=== PATIENT | female | born 1950 | race Caucasian/White ===

== ENCOUNTER 2017-05-11 08:23 | Day surgery (SDC) | payer MEDICARE, OTHER ==
[~2017-05-11] VITALS: Ht 167.6 cm; Wt 92.5 kg
[~2017-05-11 08:23] MED LIST: AC325T PO; AC500T PO; ACET-168 PO; ALPR0.254 PO; ASP81CT PO; ASPI-999 PO; ATOR80TA PO; ATOR80TA76 PO; CITA20TA7 PO; CLOP75TA28 PO; CLPD75T PO; CRB100CT PO; DIPH50CA PO; DOCU-143 PO; IMMODIUM; LISI10TA2 PO; LOPE2CAP PO; METO-333 PO; METO25TA2 PO; MONT10TA21 PO; MONT10TA24 PO; NCT21TD TD; NICO1PAT16 TD; NITR0.4T SL; NTR.4SL SL; OMEG-12 PO; PNT40TEC PO; RANI150T11 PO; RANO500T2 PO; RT-ALBUINH IH
[2017-05-11] MEDS ORDERED: HEParin (CATH LAB) 2,000 ML IV ONE (08:34)
[2017-05-11] MEDS ORDERED: NS IV 1000 ML 1,000 ML ONE (08:34)
[2017-05-11 09:00] VITALS: BP 130/77
[2017-05-11 09:05] LABS: RED BLOOD COUNT 5.01 10^6/uL (4.35-5.85); RED CELL DISTRIBUTION WIDTH 15.3 % (10.0-14.5); WHITE BLOOD COUNT 7.7 10^3/uL (4.3-11.0)
[2017-05-11] MEDS ORDERED: NS IV 1000 ML 1,000 ML IV SCH ×2 (09:15→13:32)
[2017-05-11 09:16] LABS: INR 0.9 (0.8-1.4); PROTHROMBIN TIME PATIENT 12.1 SEC (12.2-14.7)
[2017-05-11] MEDS ORDERED: LEVO75TA6 PO (09:25)
[2017-05-11] MEDS ORDERED: LOPE2TAB64 PO (09:25)
[2017-05-11] MEDS ORDERED: ATOR20TA66 PO (09:25)
[2017-05-11] MEDS ORDERED: LORA0.5T PO (09:25)
[2017-05-11 09:26] LABS: BILIRUBIN,TOTAL 0.4 MG/DL (0.1-1.0); CALCIUM 9.7 MG/DL (8.5-10.1); CREATININE SERUM 1.09 MG/DL (0.60-1.30); POTASSIUM 4.4 MMOL/L (3.6-5.0); TOTAL PROTEIN 7.8 GM/DL (6.4-8.2)
[2017-05-11] MEDS ORDERED: CITA40TA11 PO (09:31)
[2017-05-11] MEDS ORDERED: diphenhydrAMINE 50 MG/ML INJ (BENADRYL) ONE (12:19)
[2017-05-11] MEDS ORDERED: MIDAZOLAM 5 MG/5 ML (VERSED) VIAL ONE (12:19)
[2017-05-11] MEDS ORDERED: fentaNYL INJECTION 100 MCG/2 ML AMP ONE (12:19)
--- NOTE | 2017-05-11 13:23 | Cardiac Procedure Note-CS/ASA ---
Pre-Procedure Note Pre-Op Procedure Note H&P Reviewed The H&P was reviewed, patient examined and no changes noted. Date H&P Reviewed: May 11, 2017 Time H&P Reviewed: 12:40 Conscious Sedation Pre-Proced Time Reviewed: 12:40 ASA Class: 3 Airway Mallampati Classification: ([place] appropriate class) I. II. III, IV Lungs Heart ASA score ASA 1: a normal healthy patient ASA 2: a patient with a mild systemic disease (mid diabetes, controlled hypertension, obesity ASA 3: a patient with a severe systemic disease that limits activity (angina , COPD, prior Myocardial infarction) ASA 4: a patient with an incapacitating disease that is a constant threat to life (CHF, renal failure) ASA 5: a moribund patient not expected to survive 24 hrs. (ruptured aneurysm) ASA 6: a declared brain patient whose organs are being harvested. For emergent operations, add the letter E after the classification Grade 2 Sedation Plan: Analgesia, Amnesia, Plan communicated to team members, Discussed options with patient/fam, Discussed risks with patient/fam Note The patient is an appropriate candidate to undergo the planned procedure, sedation, and anesthesia. The patient immediately re-assessed prior to indication. ISA VASQUEZ MD FACP FAC CCDS May 11, 2017 13:23
--- NOTE | 2017-05-11 13:34 | Discharge Inst-Post CATH ---
Discharge Inst-CATH Post Cardiac Cath D/C Inst Follow Up/Plan F/u with Dr Tobias in 2-3 weeks CARDIAC CATH DISCHARGE INSTRUCTIONS *Hold Metformin for 48 hours post heart cath. ACTIVITY * Go Home directly and rest. * Limit activity of the leg (or wrist if it was used) for 7 days including aerobics, swimming, jogging, bicycling, etc. * Restrict stair-climbing for 7 days if possible, if not, climb up with your non -cath leg, then bring together on the same step. * Avoid lifting, pushing, pulling or excessive movement of the affected extremity for 7 days. * Customary sexual activity may be resumed after 2 days-use caution not to use a position that strains or causes pain to the affected extremity. * No driving for 24 hours. * NO SMOKING. * Avoid straining for bowel movements for 7 days. * Gentle walking on level ground is allowed. * Returning to work will depend on the type of procedure and the results. Your doctor will discuss this with you. CALL YOUR DOCTOR FOR ANY OF THE FOLLOWING: *If bleeding from the puncture site occurs- Apply gentle pressure to site with clean cloth and call your doctor or EMS. * If a knot or lump forms under the skin, increases in size, or causes pain. * If bruising appears to be worsening or moving further down your leg instead of disappearing. * Temperature above 101 F. CARE OF YOUR GROIN INCISION; * Bruising or purple discoloration of the skin near the puncture site is common. * You may shower only, no bathtub bathing for 5 days. Be careful to avoid slipping as your leg may feel stiff. * If a closure device was used on your femoral artery, please see the attached guide regarding care of the device and your leg. * REMOVE the dressing from your groin the next day after your procedure in the shower. CARE OF YOUR WRIST INCISION; * Bruising or purple discoloration of the skin near the puncture site is common. * You may shower. * DO NOT submerge wrist. * Remove dressing in 24 hours. ISA TOBIAS MD [facility] CCDS May 11, 2017 13:34
--- NOTE | 2017-05-11 13:35 | Discharge Inst-Cardiology ---
Discharge Inst-Cardiac Discharge Medications Continued Medications: Acetaminophen (Acetaminophen Extra Strength) 500 Mg Tablet 1000 MG PO Q6H PRN for PAIN TAKES 2 (500MG) TABLETS Albuterol Sulfate (Ventolin Hfa) 18 Gm Hfa.aer.ad 2 PUFF IH Q4H PRN for SHORTNESS OF BREATH Aspirin (Aspirin) 81 Mg Tab.chew 81 MG PO 0900 Atorvastatin Calcium (Atorvastatin Calcium) 20 Mg Tablet 20 MG PO 0900, TAB Citalopram Hydrobromide (Citalopram HBr) 40 Mg Tablet 40 MG PO DAILY, TAB Clopidogrel Bisulfate (Clopidogrel) 75 Mg Tablet 75 MG PO 0900 Docusate Sodium (Colace) 100 Mg Capsule 100 MG PO HS PRN for CONSTIPATION Levothyroxine Sodium (Levothyroxine Sodium) 75 Mcg Tablet 75 MCG PO 0800, TAB Loperamide HCl (Anti-Diarrhea) 2 Mg Tablet 2 MG PO PRN PRN for DIARRHEA, TAB Lorazepam (Lorazepam) 0.5 Mg Tablet 0.5-1.5 MG PO HS PRN for INSOMNIA, TAB TAKES 1-3 OF A (0.5 MG) TABLET Nitroglycerin (Nitrostat) 0.4 Mg Tab.subl 0.4 MG SL UD PRN for CHEST PAIN Ranitidine HCl (Ranitidine HCl) 150 Mg Tablet 150 MG PO HS PRN for HEARTBURN ISA VASQUEZ MD FACP [facility] CCDS May 11, 2017 13:35
[2017-05-11] MEDS ORDERED: PATIENT MAY USE OWN MEDS, ALL PO SCH (13:45)
--- NOTE | 2017-05-13 00:37 | CARDIAC CATHETERIZATION ---
DATE OF SERVICE: 05/11/2017 The patient is a 67-year-old lady who is known to have coronary artery disease and has been experiencing recurrent chest discomfort and shortness of breath. This is suggestive of recurrent angina. Cardiac catheterization was carried out today after having obtained an informed consent. DESCRIPTION OF PROCEDURE: She was brought to the cardiac catheterization laboratory in a fasting state. Right groin was prepared and draped in the usual sterile fashion. Lidocaine 1% was used for local anesthesia. Modified Seldinger technique was used to advance a 5-Belizean sheath in the right femoral artery. A 5-Belizean JL3.5 catheter was used for left coronary angiography. A 5-Belizean JR4 catheter was used for right coronary angiography. A 5-Belizean pigtail catheter was used for left heart catheterization and left ventricular angiography. Angiography of the right femoral artery had been carried out through the sheath at the beginning of the procedure. At the end of the procedure, Mynx was used to achieve hemostasis following sheath removal. She tolerated the procedure well. We also performed aortic arch angiography after performance of left ventricular angiography. This was done by pulling the pigtail catheter back from the left ventricle to the aortic arch before removing the catheter. HEMODYNAMICS: Left ventricular end-diastolic pressure following coronary angiography was 7 mmHg. There was no significant pressure gradient on pullback across the aortic valve. Ascending aortic pressure was 96/65 with a mean of 57 mmHg. LEFT VENTRICULAR ANGIOGRAPHY: Left ventricular angiography was carried out in the right anterior oblique projection. Global left ventricular systolic function is normal. No regional wall motion abnormalities are seen. Left ventricular ejection fraction is 60-65%. There does not appear to be significant mitral regurgitation. CORONARY ANGIOGRAPHY: [id number] coronary calcification is seen. Left main coronary artery does not exhibit significant disease. Left anterior descending artery has mild plaques. Left circumflex artery has approximately 30% ostial and proximal stenosis. The mid left circumflex artery has a widely patent stent that is known to be Promus 3.0 x 32 mm stent. The right coronary artery is dominant. It has a long stented area in its mid to distal portion. In this area, she is known to have Promus 3.0 x 16 mm, 3.0 x 12 mm and a 2.25 x 16 mm stents. The stents do not exhibit any significant in-stent restenosis. Flow throughout the vessel is normal. AORTIC ARCH ANGIOGRAPHY: Aortic arch angiography was carried out after the pigtail catheter had been pulled back from the left ventricle into the aortic arch. Aortic arch angiography did not indicate any significant thoracic aortic aneurysm or dissection. The neck arteries are seen and, to the extent visualized, there does not appear to be significant disease in the neck arteries. CONCLUSIONS: 1. Mild coronary artery disease. 2. Patent stents in the left circumflex and the right coronary arteries. 3. Normal left ventricular end-diastolic pressure. 4. Normal global left ventricular systolic function with ejection fraction approximately 60-65%. 5. No significant mitral regurgitation. DISCUSSION AND RECOMMENDATIONS: Based on results of the study, it appears appropriate to continue a conservative approach. Risk factor modification was reviewed. Outpatient followup is advised. Job ID: [id number] DocumentID: [id number] Dictated Date: 05/11/2017 13:31:39 Gasoline Tester Date: 05/12/2017 00:15:06 Dictated By: ISA VASQUEZ MD, MA, FACP, FACC, MTDD
== END 2017-05-11 16:55 | disposition home or self-care (01) ==
LOC: CATH 08:23 → ICU 13:25 → ENPENDDIS 16:40 → CATH 16:55
PROVIDERS: ATTEND Internal Medicine Cardiovascular Disease
CPT/HCPCS: 36221; 36415; 80053; 80061; 85027; 85610; 85730; 87081; 93005; 93458

== ENCOUNTER 2018-06-17 09:51 | Outpatient (RCR) | payer MEDICARE, OTHER ==
[~2018-06-17 09:51] MED LIST changes: +ATOR20TA66 PO; -CITA20TA7 PO; +CITA20TA9 PO; +CITA40TA11 PO; +LEVO75TA6 PO; +LOPE2TAB64 PO; +LORA0.5T PO; -NCT21TD TD; +NICO-533 TD; +NICO-588 TD; -NICO1PAT16 TD
== END 2018-06-30 15:01 | disposition home or self-care (01) ==
PROVIDERS: ATTEND Orthopaedic Surgery
DX: M75.102 Unspecified rotator cuff tear or rupture of left shoulder, not specified as traumatic (principal)

== ENCOUNTER → 2019-01-10 | Outpatient (CLI) | payer MEDICARE, OTHER ==
[~2019-01-10] VITALS: Ht 170.2 cm; Wt 100.7 kg
[~2019-01-10] MED LIST changes: +CATHETER FLUSH 10 ML SYR IV PRN; +REGADENOSON 0.4 MG/5 ML SYR (LEXISCAN) IV ONE
[2019-01-10 08:46] VITALS: BP 132/70
[2019-01-10 08:51] VITALS: BP 122/74
--- NOTE | 2019-01-10 19:19 | STRESS TEST ---
DATE OF SERVICE: 01/10/2019 RESTING AND POST REGADENOSON TECHNETIUM-99M TETROFOSMIN SPECT CT IMAGING ORDERING PHYSICIAN: Dr. Tobias. PRIMARY CARE PHYSICIAN: Dr. Damon. CLINICAL DIAGNOSIS: Chest discomfort. Baseline images were carried out after injection of 10.59 mCi of technetium-99m Tetrofosmin. This was followed by 0.4 mg of regadenoson and 31.2 mCi of technetium-99m Tetrofosmin for stress imaging. The electrocardiogram showed sinus rhythm at baseline. It did not change significantly with the regadenoson infusion. The patient noticed some shortness of breath and leg discomfort following regadenoson infusion, which resolved in a few minutes. Review of images at rest and following stress does not indicate any significant perfusion defects consistent with significant myocardial ischemia or infarction. Gated images show normal global left ventricular systolic function with normal regional wall motion. Left ventricular ejection fraction is calculated to be 63%. Left ventricular end diastolic volume is 61 mL. TID is absent (0.94). CONCLUSIONS: 1. No evidence of any significant myocardial ischemia or infarction on this study. 2. Normal regional wall motion. 3. Normal global left ventricular systolic function with a calculated ejection fraction of 63%. Job ID: [id number] DocumentID: [id number] Dictated Date: 01/10/2019 16:12:23 [employer]gronomy Location Manager Date: 01/10/2019 19:18:13 Dictated By: ISA TOBIAS MD, MA, FACP, FACC,
== END ==
LOC: CARD 06:46
PROVIDERS: ATTEND Internal Medicine Cardiovascular Disease
DX: R07.9 Chest pain, unspecified (principal); I25.10 Atherosclerotic heart disease of native coronary artery without angina pectoris
CPT/HCPCS: 78452; 93017

== ENCOUNTER → 2019-01-17 | Outpatient (CLI) | payer MEDICARE, OTHER ==
[~2019-01-17] MED LIST changes: -CATHETER FLUSH 10 ML SYR IV PRN; -REGADENOSON 0.4 MG/5 ML SYR (LEXISCAN) IV ONE
[2019-01-17 11:45] LABS: ABG BASE EXCESS 0.4 MMOL/L (-2.5-2.5); ABG OXYGEN SATURATION 97 % (94-100); ABG PCO2 39 MMHG (35-45); ABG PH 7.42 (7.37-7.43); ABG PO2 72 MMHG (79-93); ALLENS TEST YES-POS; INSPIRED O2 RA
[2019-01-17 11:46] LABS: PATIENT TEMP 95.6; VENTILATOR NO
== END ==
LOC: LAB 10:56
PROVIDERS: ATTEND Internal Medicine Critical Care Medicine
DX: J43.8 Other emphysema (principal); R06.89 Other abnormalities of breathing; R05 Cough; R06.02 Shortness of breath; G47.33 Obstructive sleep apnea (adult) (pediatric); Z72.0 Tobacco use
CPT/HCPCS: 36600; 82805

== ENCOUNTER 2019-02-14 09:17 | Day surgery (SDC) | payer MEDICARE, OTHER ==
[2019-02-14] VITALS (9 sets, daily range): BP systolic 99–129; BP diastolic 56–72
[~2019-02-14] VITALS: Ht 165.1 cm; Wt 105.7 kg
[2019-02-14] MEDS ORDERED: HEParin (CATH LAB) 2,000 ML IV ONE (09:30)
[2019-02-14] MEDS ORDERED: NS IV 1000 ML 1,000 ML ONE (09:30)
[2019-02-14] MEDS ORDERED: LIDOCAINE 1% INJ 20 ML 20 ML VIAL ONE (09:30)
[2019-02-14 09:50] LABS: HEMOGLOBIN 12.5 G/DL (11.5-16.0); MEAN PLATELET VOLUME 9.7 FL (7.4-10.4); WHITE BLOOD COUNT 8.7 10^3/uL (4.3-11.0)
[2019-02-14 10:02] LABS: INR 0.9 (0.8-1.4); PROTHROMBIN TIME PATIENT 12.7 SEC (12.2-14.7)
[2019-02-14] MEDS ORDERED: FLUT1BLS3 IH (10:06)
[2019-02-14] MEDS ORDERED: LORA1TAB PO (10:06)
[2019-02-14] MEDS ORDERED: GABA800T10 PO (10:06)
[2019-02-14] MEDS ORDERED: CETI10TA17 PO (10:06)
[2019-02-14] MEDS ORDERED: CHOL500044 PO (10:06)
[2019-02-14] MEDS ORDERED: VIT1TABL26 PO (10:06)
[2019-02-14] MEDS ORDERED: ZAFI20TA13 PO (10:06)
[2019-02-14 10:09] LABS: ALBUMIN 3.8 GM/DL (3.2-4.5); BILIRUBIN,TOTAL 0.3 MG/DL (0.1-1.0); CALCIUM 9.8 MG/DL (8.5-10.1); CREATININE SERUM 1.09 MG/DL (0.60-1.30); POTASSIUM 3.9 MMOL/L (3.6-5.0); TOTAL PROTEIN 7.6 GM/DL (6.4-8.2)
[2019-02-14] MEDS ORDERED: MIDAZOLAM 5 MG/5 ML (VERSED) VIAL ONE (10:09)
[2019-02-14] MEDS ORDERED: fentaNYL INJECTION 100 MCG/2 ML AMP ONE (10:09)
[2019-02-14] MEDS ORDERED: MIDAZOLAM 2 MG/2 ML (VERSED) VIAL ONE (10:49)
[2019-02-14] MEDS ORDERED: NS IV 1000 ML 1,000 ML IV SCH ×2 (11:00→11:15)
[2019-02-14] MEDS ORDERED: PATIENT MAY USE OWN MEDS, ALL PO SCH (11:15)
--- NOTE | 2019-02-14 11:15 | Cardiac Procedure Note-CS/ASA ---
Pre-Procedure Note Pre-Op Procedure Note H&P Reviewed The H&P was reviewed, patient examined and no changes noted. Date H&P Reviewed: February 14, 2019 Time H&P Reviewed: 10:40 Conscious Sedation Pre-Proced Time 10:40 ASA Score 3 For ASA 3 and 4: Consider anesthesia and medical clearance. Also, for patients with a history of failed moderate sedation consider anesthesia. Airway Lungs Heart ASA score ASA 1: a normal healthy patient ASA 2: a patient with a mild systemic disease (mid diabetes, controlled hypertension, obesity ASA 3: a patient with a severe systemic disease that limits activity (angina , COPD, prior Myocardial infarction) ASA 4: a patient with an incapacitating disease that is a constant threat to life (CHF, renal failure) ASA 5: a moribund patient not expected to survive 24 hrs. (ruptured aneurysm) ASA 6: a declared brain- patient whose organs are being harvested. For emergent operations, add the letter E after the classification Mallampati Classification Grade 2 Sedation Plan Analgesia, Amnesia, Plan communicated to team members, Discussed options with patient/fam, Discussed risks with patient/fam The patient is an appropriate candidate to undergo the planned procedure, sedation, and anesthesia. The patient immediately re-assessed prior to indication. ISA VASQUEZ MD FACP FAC CCDS February 14, 2019 11:15
--- NOTE | 2019-02-14 11:18 | Discharge Inst-Cardiology ---
Discharge Inst-Cardiac Discharge Medications Continued Medications: Acetaminophen (Acetaminophen Extra Strength) 500 Mg Tablet 1000 MG PO Q6H PRN for PAIN TAKES 2 (500MG) TABLETS Albuterol Sulfate (Ventolin Hfa) 18 Gm Hfa.aer.ad 2 PUFF IH Q4H PRN for SHORTNESS OF BREATH Aspirin (Aspirin) 81 Mg Tab.chew 81 MG PO 0900 Atorvastatin Calcium (Atorvastatin Calcium) 20 Mg Tablet 20 MG PO 0900, TAB Cetirizine HCl (Cetirizine HCl) 10 Mg Tablet 10 MG PO DAILY, TAB Cholecalciferol (Vitamin D3) (Vitamin D3) 5,000 Unit Tablet 5000 UNIT PO DAILY, TAB Citalopram Hydrobromide (Citalopram HBr) 40 Mg Tablet 40 MG PO DAILY, TAB Clopidogrel Bisulfate (Clopidogrel) 75 Mg Tablet 75 MG PO 0900 Fluticasone/Umeclidin/Vilanter (Trelegy Ellipta 100-62.5-25) 1 Each Blst.w.dev 1 EACH IH DAILY Gabapentin (Gabapentin) 800 Mg Tablet 800 MG PO TID, TAB Levothyroxine Sodium (Levothyroxine Sodium) 75 Mcg Tablet 75 MCG PO 0800, TAB Loperamide HCl (Anti-Diarrhea) 2 Mg Tablet 2 MG PO PRN PRN for DIARRHEA, TAB Lorazepam (Lorazepam) 1 Mg Tablet 1 MG PO HS, TAB Nitroglycerin (Nitrostat) 0.4 Mg Tab.subl 0.4 MG SL UD PRN for CHEST PAIN Ranitidine HCl (Ranitidine HCl) 150 Mg Tablet 150 MG PO HS PRN for HEARTBURN Vit A,C & E/Lutein/Minerals (Ocuvite with Lutein Tablet) 1 Each Tablet 1 EACH PO DAILY, TAB Zafirlukast (Zafirlukast) 20 Mg Tablet 20 MG PO BID, TAB ISA VASQUEZ MD FACP FAC CCDS February 14, 2019 11:18
--- NOTE | 2019-02-14 11:19 | Discharge Inst-Post CATH ---
Discharge Inst-CATH/EP Post Cardiac Cath/EP D/C Inst Follow Up/Plan F/u with Dr Tobias in 2 weeks ACTIVITY * Go Home directly and rest. * Limit activity of the leg (or wrist if it was used) for 7 days including aerobics, swimming, jogging, bicycling, etc. * Restrict stair-climbing for 7 days if possible, if not, climb up with your non -cath leg, then bring together on the same step. * Avoid lifting, pushing, pulling or excessive movement of the affected extremity for 7 days. * Customary sexual activity may be resumed after 2 days-use caution not to use a position that strains or causes pain to the affected extremity. * No driving for 24 hours. * NO SMOKING. * Avoid straining for bowel movements for 7 days. * Gentle walking on level ground is allowed. * Returning to work will depend on the type of procedure and the results. Your doctor will discuss this with you. CALL YOUR DOCTOR FOR ANY OF THE FOLLOWING: *If bleeding from the puncture site occurs- Apply gentle pressure to site with clean cloth and call your doctor or EMS. * If a knot or lump forms under the skin, increases in size, or causes pain. * If bruising appears to be worsening or moving further down your leg instead of disappearing. * Temperature above 101 F. CARE OF YOUR GROIN INCISION; * Bruising or purple discoloration of the skin near the puncture site is common. * You may shower only, no bathtub bathing for 5 days. Be careful to avoid slipping as your leg may feel stiff. * If a closure device was used on your femoral artery, please see the attached guide regarding care of the device and your leg. * Leave dressing on FOR 24 hours. CARE OF YOUR WRIST INCISION; * Bruising or purple discoloration of the skin near the puncture site is common. * You may shower. * DO NOT submerge wrist. * Leave dressing on FOR 24 hours. ISA TOBIAS MD FACP FAC CCDS February 14, 2019 11:19
--- NOTE | 2019-02-14 11:28 | OPERATIVE REPORT ---
DATE OF SERVICE: 02/14/2019 PERIPHERAL ANGIOGRAPHY The patient is a 68-year-old lady who is known to have multiple peripheral arterial disease risk factors and who was reporting symptoms that are consistent with leg claudication on both sides. Peripheral angiography was carried out today after having obtained an informed consent. DESCRIPTION OF PROCEDURE: She was brought to the cardiac catheterization laboratory in a fasting state. Right groin was prepared and draped in the usual sterile fashion. Lidocaine 1% used for local anesthesia. Modified Seldinger technique was used to advance a 5-[place]cuadorean sheath in the right femoral artery. A 5-Ecuadorean pigtail catheter was used for abdominal aortic angiography with the pigtail placed at the level of L1. Subsequently, the pigtail was pulled back to just above the aortoiliac bifurcation and bilateral leg artery angiography was performed with runoff down to the level of the ankles. She tolerated the procedure well. At the end of the procedure, Mynx was used to achieve hemostasis. ABDOMINAL AORTIC ANGIOGRAPHY: Abdominal aortic angiography does not indicate any abdominal aortic aneurysm, dissection or any significant atherosclerosis. The renal arteries are identified. There is a dual renal arterial system on the right side. Renal arteries do not exhibit any significant renal artery stenosis. The aortoiliac bifurcation is intact. The inferior mesenteric artery is identified and does not exhibit significant disease. BILATERAL LEG ARTERY ANGIOGRAPHY: The common iliac, external iliac, internal iliac, common femoral, superficial femoral, deep femoral, and popliteal arteries are intact and free of significant disease on both sides. The popliteal artery trifurcates on both sides with good distal runoff. CONCLUSIONS: 1. No evidence of abdominal aortic aneurysm. 2. No evidence of any renal artery stenosis. 3. No evidence of any significant peripheral arterial disease of the lower limbs. DISCUSSION AND RECOMMENDATIONS: Based on results of the study, it appears appropriate to continue a conservative approach. Risk factor modification is advised. Outpatient followup is advised. Job ID: [id number] DocumentID: [id number] Dictated Date: 02/14/2019 11:04:13 [place] In Date: 02/14/2019 11:27:58 Dictated By: ISA VASQUEZ MD, MA, FACP, FACC,
== END 2019-02-14 14:30 | disposition home or self-care (01) ==
LOC: CATH 09:17 → SDC 11:28 → CATH 14:30
PROVIDERS: ATTEND Internal Medicine Cardiovascular Disease
DX: M79.661 Pain in right lower leg (principal); M79.662 Pain in left lower leg; M79.89 Other specified soft tissue disorders; R07.89 Other chest pain; I25.10 Atherosclerotic heart disease of native coronary artery without angina pectoris; J44.9 Chronic obstructive pulmonary disease, unspecified; E78.5 Hyperlipidemia, unspecified; I65.23 Occlusion and stenosis of bilateral carotid arteries; G47.33 Obstructive sleep apnea (adult) (pediatric); E03.9 Hypothyroidism, unspecified; Z91.19 Patient's noncompliance with other medical treatment and regimen; Z79.82 Long term (current) use of aspirin; Z79.899 Other long term (current) drug therapy
CPT/HCPCS: 36415; 75625; 75716; 80053; 80061; 85027; 85610; 85730; 87081

== ENCOUNTER → 2019-04-05 | Outpatient (CLI) | payer MEDICARE, OTHER ==
[~2019-04-05] MED LIST changes: +CETI10TA17 PO; +CHOL500044 PO; +FLUT1BLS3 IH; +GABA800T10 PO; +HOLD METFORMIN - RECEIVED CONTRAST 20 ML VIAL IV SCH; +IOHEXOL 350 MG/ML 100 ML (OMNIPAQUE 350) VIAL IV ONE; +LORA1TAB PO; +NS 100 ML (IVPB) BAG IV ONE; +VIT1TABL26 PO; +ZAFI20TA13 PO
[2019-04-05 10:38] LABS: CREATININE SERUM 1.06 MG/DL (0.60-1.30)
--- NOTE | 2019-04-05 11:12 | Diagnostic Imaging Report ---
PROCEDURE: CT chest with contrast only. TECHNIQUE: Multiple contiguous axial images were obtained through the chest after administration of intravenous contrast. Auto Exposure Controls were utilized during the CT exam to meet ALARA standards for radiation dose reduction. INDICATION: Shortness of breath FINDINGS: There is calcific atherosclerosis of the aorta but no aneurysm or dissection. There are no central pulmonary emboli. Lungs are clear. There are no effusions or pneumothoraces. There is no hilar or mediastinal lymphadenopathy. IMPRESSION: Atherosclerosis. CT chest otherwise unremarkable. Dictated by: Dictated on workstation # [id number]
== END ==
LOC: RAD 09:15
PROVIDERS: ATTEND Nurse Practitioner Family
DX: J44.9 Chronic obstructive pulmonary disease, unspecified (principal); J30.9 Allergic rhinitis, unspecified; G47.33 Obstructive sleep apnea (adult) (pediatric); I70.0 Atherosclerosis of aorta; Z72.0 Tobacco use
CPT/HCPCS: 36415; 71260; 82565; 84520

== ENCOUNTER → 2019-04-05 | Outpatient (CLI) | payer MEDICARE, OTHER ==
[~2019-04-05] MED LIST changes: -HOLD METFORMIN - RECEIVED CONTRAST 20 ML VIAL IV SCH; -IOHEXOL 350 MG/ML 100 ML (OMNIPAQUE 350) VIAL IV ONE; -NS 100 ML (IVPB) BAG IV ONE; +RT-ALBUTEROL SULF 2.5 MG/3 ML PRE-MIX VIAL INH ONE; +RT-ALBUTEROL SULF 2.5 MG/3 ML PRE-MIX VIAL ONE
== END ==
LOC: RT 09:11
PROVIDERS: ATTEND Nurse Practitioner Family
DX: J44.9 Chronic obstructive pulmonary disease, unspecified (principal); G47.33 Obstructive sleep apnea (adult) (pediatric); J30.9 Allergic rhinitis, unspecified; Z72.0 Tobacco use
CPT/HCPCS: 94060; 94726; 94729

== ENCOUNTER 2019-10-03 22:04 | Day surgery (SDC) | payer MEDICARE, OTHER ==
[~2019-10-03] VITALS: Ht 170 cm; Wt 118.6 kg
[~2019-10-03 22:04] MED LIST changes: -RT-ALBUTEROL SULF 2.5 MG/3 ML PRE-MIX VIAL INH ONE; -RT-ALBUTEROL SULF 2.5 MG/3 ML PRE-MIX VIAL ONE
[2019-10-03] MEDS ORDERED: NITROGLYCERIN 0.4 MG SL TABS BTL 25'S SL ONE (22:07)
[2019-10-03] MEDS ORDERED: ASPIRIN 81 MG CHEW (CHILDREN'S ASA) ONE (22:08)
[2019-10-03] MEDS ORDERED: TICAGRELOR 90 MG TABLET (BRILINTA) PO STA (22:18)
[2019-10-03] MEDS ORDERED: HEParin 1000 UNIT/ML (10ML VIAL) FOR BOLUS ONE ×2 (22:18→22:47)
[2019-10-03 22:25] LABS: BASOPHILS % (AUTO) 0 % (0-10); EOSINOPHILS # (AUTO) 0.2 10^3/uL (0.0-0.3); EOSINOPHILS % (AUTO) 2 % (0-10); HEMATOCRIT 43 % (35-52); HEMOGLOBIN 13.7 G/DL (11.5-16.0); LYMPHOCYTES # (AUTO) 5.1 X 10^3 (1.0-4.0); LYMPHOCYTES % (AUTO) 40 % (12-44); MEAN CORPUSCULAR HEMOGLOBIN 28 PG (25-34); MEAN CORPUSCULAR HGB CONC 32 G/DL (32-36); MEAN CORPUSCULAR VOLUME 87 FL (80-99); MEAN PLATELET VOLUME 10.9 FL (7.4-10.4); MONOCYTES # (AUTO) 1.2 X 10^3 (0.0-1.0); MONOCYTES % (AUTO) 10 % (0-12); NEUTROPHILS # (AUTO) 6.3 X 10^3 (1.8-7.8); NEUTROPHILS % (AUTO) 49 % (42-75); PLATELET COUNT 254 10^3/uL (130-400); WHITE BLOOD COUNT 12.9 10^3/uL (4.3-11.0)
[2019-10-03] MEDS ORDERED: fentaNYL INJECTION 100 MCG/2 ML AMP ONE ×2 (22:30→22:47)
[2019-10-03] MEDS ORDERED: ASPIRIN 81 MG CHEW (CHILDREN'S ASA) PO ONE (22:30)
--- NOTE | 2019-10-03 22:30 | ED Chest Pain ---
General Chief Complaint: Chest Pain Stated Complaint: CHEST PAIN,SOB Source: patient, family Exam Limitations: no limitations History of Present Illness Date Seen by Provider: Oct 03, 2019 Time Seen by Provider: 22:11 Initial Comments Here with report of acute onset of central chest pain that radiates to the jaw and down the left arm. Onset one hour ago and is associated with nausea and vomiting. Does have history of previous heart attack and stent and states this feels like that. She did try some Tylenol and that has not helped. Previously on blood thinner but off of that about 6 months ago after she completed the required course of therapy. Timing/Duration: 1 hour, constant Severity/Quality: moderate, severe Location: central Radiation: jaw, arms, shoulders Activities at Onset: none Prior CP/Workup: cardiac cath, echocardiography, heart attack ASA po OPTIONS ADVISOR: No NTG SL OPTIONS ADVISOR: No Associated Symptoms: No abdominal pain; diaphoresis; No fever/chills; nausea/vomiting, shortness of breath, weakness Allergies and Home Medications Allergies Coded Allergies: Penicillins (Unverified Allergy, Mild, 09/04/09) codeine (Unverified Allergy, Mild, 09/04/09) morphine (Unverified Allergy, Mild, 09/04/09) Home Medications Acetaminophen 500 Mg Tablet, 1,000 MG PO Q6H PRN for PAIN, (Reported) TAKES 2 (500MG) TABLETS Albuterol Sulfate 18 Gm Hfa.aer.ad, 2 PUFF IH Q4H PRN for SHORTNESS OF BREATH, (Reported) Aspirin 81 Mg Tab.chew, 81 MG PO 0900, (Reported) Atorvastatin Calcium 20 Mg Tablet, 20 MG PO 0900, (Reported) Cetirizine HCl 10 Mg Tablet, 10 MG PO DAILY, (Reported) Cholecalciferol (Vitamin D3) 5,000 Unit Tablet, 5,000 UNIT PO DAILY, (Reported) Citalopram Hydrobromide 40 Mg Tablet, 40 MG PO DAILY, (Reported) Clopidogrel Bisulfate 75 Mg Tablet, 75 MG PO 0900, (Reported) Fluticasone/Umeclidin/Vilanter 1 Each Blst.w.dev, 1 EACH IH DAILY, (Reported) Gabapentin 800 Mg Tablet, 800 MG PO TID, (Reported) Levothyroxine Sodium 75 Mcg Tablet, 75 MCG PO 0800, (Reported) Loperamide HCl 2 Mg Tablet, 2 MG PO PRN PRN for DIARRHEA, (Reported) Lorazepam 1 Mg Tablet, 1 MG PO HS, (Reported) Nitroglycerin 0.4 Mg Tab.subl, 0.4 MG SL UD PRN for CHEST PAIN, (Reported) Ranitidine HCl 150 Mg Tablet, 150 MG PO HS PRN for HEARTBURN, (Reported) Vit A,C & E/Lutein/Minerals 1 Each Tablet, 1 EACH PO DAILY, (Reported) Zafirlukast 20 Mg Tablet, 20 MG PO BID, (Reported) Patient Home Medication List Home Medication List Reviewed: Yes Review of Systems Review of Systems Constitutional: see HPI EENTM: No Symptoms Reported Respiratory: See HPI; Denies Cough, Denies Wheezing Cardiovascular: Chest Pain; Denies Irregular Heart Rate; Lightheadedness Genitourinary: No Symptoms Reported Musculoskeletal: see HPI Skin: no symptoms reported Psychiatric/Neurological: Headache, Weakness All Other Systems Reviewed Negative Unless Noted: Yes Past Maxbbsi-Sumoal-Ccmjii Hx Past Med/Social Hx: Reviewed Nursing Past Med/Soc Hx Patient Social History Alcohol Use: Occasionally Uses Recreational Drug Use: No Smoking Status: Current Everyday Smoker Type Used: Cigarettes Recent Foreign Travel: No Contact w/Someone Who Travel: No Recent Hopitalizations: No Immunizations Up To Date Tetanus Booster (TDap): Unknown Date of Pneumonia Vaccine: Aug 21, 2015 Date of Influenza Vaccine: Aug 21, 2015 Seasonal Allergies Seasonal Allergies: Yes Past Medical History Surgeries: Yes Abdominal, Appendectomy, Bowel Surgery, Cardiac, Coronary Stent, Gallbladder, Hysterectomy Respiratory: Yes Sleep Apnea, COPD Cardiac: Yes (CARDIAC CATHS-STENTS X 4) Coronary Artery Disease, Heart Attack, Hypertension Neurological: Yes (TRIGEMINAL NEURALGIA, LEFT SIDED FACIAL NUMBNESS) Reproductive Disorders: Yes (X2 MISCARRIAGES) Female Reproductive Disorders: Denies 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 0.0oz. 105.829051sa; 38.8 BMI Method:Stated General Appearance: No Apparent Distress, WD/WN HEENT: PERRL/EOMI, Pharynx Normal Neck: Non Tender, Supple Respiratory: Lungs Clear, Normal Breath Sounds Cardiovascular: Regular Rate, Rhythm, No Murmur Gastrointestinal: Non Tender, Soft Extremity: Normal Range of Motion, Non Tender Neurologic/Psychiatric: Alert, Oriented x3 Skin: Normal Color, Warm/Dry Procedures/Interventions Date of ETT Placement: Oct 03, 2019 Time of ETT Placement: 23:00 Intubation Method: orotracheal Tube Size: 7.5 Medications: Etomidate, Rocuronium Positive End Tide CO2: Yes Breath Sounds after Intubation: bilateral-equal Intubation Complications: no complications Post Intubation Xray: Yes tube at earl and backed up 1 cm to 24 cm at lip Intubated under emergent conditions. See progress section for intubation note. Progress/Results/Core Measures Results/Orders Lab Results Laboratory Tests Test 10/03/19 22:16 Range/Units White Blood Count 12.9 H 4.3-11.0 10^3/uL Red Blood Count 4.99 4.35-5.85 10^6/uL Hemoglobin 13.7 11.5-16.0 G/DL Hematocrit 43 35-52 % Mean Corpuscular Volume 87 80-99 FL Mean Corpuscular Hemoglobin 28 25-34 PG Mean Corpuscular Hemoglobin Concent 32 32-36 G/DL Red Cell Distribution Width 17.0 H 10.0-14.5 % Platelet Count 254 130-400 10^3/uL Mean Platelet Volume 10.9 H 7.4-10.4 FL Neutrophils (%) (Auto) 49 42-75 % Lymphocytes (%) (Auto) 40 12-44 % Monocytes (%) (Auto) 10 0-12 % Eosinophils (%) (Auto) 2 0-10 % Basophils (%) (Auto) 0 0-10 % Neutrophils # (Auto) 6.3 1.8-7.8 X 10^3 Lymphocytes # (Auto) 5.1 H 1.0-4.0 X 10^3 Monocytes # (Auto) 1.2 H 0.0-1.0 X 10^3 Eosinophils # (Auto) 0.2 0.0-0.3 10^3/uL Basophils # (Auto) 0.0 0.0-0.1 10^3/uL Prothrombin Time 12.8 12.2-14.7 SEC INR Comment 0.9 0.8-1.4 Activated Partial Thromboplast Time 27 24-35 SEC Sodium Level 140 135-145 MMOL/L Potassium Level 3.3 L 3.6-5.0 MMOL/L Chloride Level 104 98-107 MMOL/L Carbon Dioxide Level 20 L 21-32 MMOL/L Anion Gap 16 H 5-14 MMOL/L Blood Urea Nitrogen 9 7-18 MG/DL Creatinine 1.09 0.60-1.30 MG/DL Estimat Glomerular Filtration Rate 50 BUN/Creatinine Ratio 8 Glucose Level 112 H 70-105 MG/DL Calcium Level 10.0 8.5-10.1 MG/DL Corrected Calcium 10.1 8.5-10.1 MG/DL Magnesium Level 2.0 1.6-2.4 MG/DL Total Bilirubin 0.3 0.1-1.0 MG/DL Aspartate Amino Transf (AST/SGOT) 18 5-34 U/L Alanine Aminotransferase (ALT/SGPT) 20 0-55 U/L Alkaline Phosphatase 191 H 40-136 U/L Myoglobin 31.0 10.0-92.0 NG/ML Troponin I < 0.028 <0.028 NG/ML Total Protein 7.6 6.4-8.2 GM/DL Albumin 3.9 3.2-4.5 GM/DL My Orders Orders - STEPHANIE SHARMA MD Nitroglycerin 0.4 Mg Btl 25's (Nitrostat (10/03/19 22:07) Aspirin Chewable Tablet (Baby Aspirin Ch (10/03/19 22:08) Cbc With Automated Diff (10/03/19 22:18) Magnesium (10/03/19 22:18) Chest 1 View, Ap/Pa Only (10/03/19 22:18) Ekg Tracing (10/03/19 22:18) Comprehensive Metabolic Panel (10/03/19 22:18) Myoglobin Serum (10/03/19 22:18) Protime With Inr (10/03/19 22:18) Partial Thromboplastin Time (10/03/19 22:18) O2 (10/03/19 22:18) Monitor-Rhythm Ecg Trace Only (10/03/19 22:18) Lipid Panel (10/04/19 06:00) Ed Iv/Invasive Line Start (10/03/19 22:18) Troponin I (10/03/19 22:18) Ticagrelor Tablet (Brilinta Tablet) (10/03/19 22:18) Heparin Injection (Heparin Injection) (10/03/19 22:30) Aspirin Chewable Tablet (Baby Aspirin Ch (10/03/19 22:30) Heparin (Bolus Per Protocol) (Heparin (B (10/03/19 22:18) Fentanyl Injection (Sublimaze Injection (10/03/19 22:31) Medications Given in ED Current Medications Medications Dose Ordered Sig/Any Route Start Time Stop Time Status Last Admin Dose Admin Aspirin 81 mg STK-MED ONCE .ROUTE 10/03/19 22:08 10/03/19 22:13 DC 10/03/19 22:13 324 MG Heparin Sodium (Porcine) 10,000 unit STK-MED ONCE .ROUTE 10/03/19 22:18 10/03/19 22:23 DC 10/03/19 22:22 5,000 UNIT Vital Signs/I&O 10/03/19 10/03/19 22:05 22:05 Pulse 87 Resp 25 B/P (MAP) 145/89 (107) Pulse Ox 100 100 O2 Delivery Room Air Nasal Cannula O2 Flow Rate 4.00 Progress Progress Note : Progress Note Seen and evaluated. IV, labs, EKG and chest x-ray ordered. ASA 324 mg by mouth ordered. 2216: I discussed the case with Dr. Minor. We will activate Health Advisor team and initiate Brilinta 180 mg, heparin 5000 units and she will get the aspirin. Pending transfer to catheter lab for acute CT inferior wall. 2251: Patient went into ventricular fibrillation cardiac arrest. CPR was initiated. Evaluation showed ventricular fibrillation and patient was defibrillated and CPR was continued. Epinephrine 1 mg IV was initiated. At 2 minute kajal, interpreted fibrillation still noted. Patient was shocked again and CPR continued. Shortly afterwards patient was waking up and patient noted to be in bradycardic rhythm. Atropine 0.5 mg IV initiated and patient at the same time went into ventricular tachycardia. Lidocaine 100 mg IV given. Cardiology arrives and patient then went into narrow complex tachycardia. Patient was intubated due to unstable condition. Versed 2.5 mg IV given. Sedation and paralysis with 20 mg of etomidate and 50 mg of rocuronium IV. Postintubation sedation with another 2.5 mg of Versed and 75 g of fentanyl. Postintubation chest x-ray done. To Health Advisor at 2308 with it risk advisor at bedside. Initial ECG Impression Date: Oct 03, 2019 Initial ECG Impression Time: 22:11 Initial ECG Rate: 90 Initial ECG Rhythm: Normal Sinus Initial ECG Impression: Acute CT Comment Sinus rhythm with ST elevation in leads 2, 3 and aVF speech pathology assistant with inferior wall acute CT. ST depression noted in leads aVL as well as V1 through V3. Discussed with radiologist. Departure Communication (Admissions) Time/Spoke to Admitting Phy: 22:16 Impression Primary Impression: Acute ST elevation myocardial infarction Qualified Codes: I21.3 - ST elevation (STEMI) myocardial infarction of unspecified site Additional Impression: Sudden cardiac arrest Disposition: ADMITTED INPATIENT Condition: Critical Admissions Decision to Admit Reason: Admit from ER (General) Decision to Admit/Date: Oct 03, 2019 Time/Decision to Admit Time: 22:16 Departure-Patient Inst. Referrals: RALF PAYNE DO (PCP/Family) Primary Care Physician STEPHANIE SHARMA MD Oct 03, 2019 22:30
[2019-10-03] MEDS ORDERED: fentaNYL INJECTION 100 MCG/2 ML AMP IVP STA (22:31)
[2019-10-03] MEDS ORDERED: ROCURONIUM 10 MG/ML 5 ML SYRINGE IV ONE (22:33)
[2019-10-03] MEDS ORDERED: ETOMIDATE IV SOLN 20 MG/10 ML VIAL IV ONE (22:33)
[2019-10-03] MEDS ORDERED: fentaNYL INJECTION 100 MCG/2 ML AMP INJ ONE (22:33)
[2019-10-03] MEDS ORDERED: LIDOCAINE DRIP PRE-MIX 2 GM/500 ML BAG IV ONE (22:33)
[2019-10-03] MEDS ORDERED: D5W 250 ML (EXCEL) BAG IV ONE ×2 (22:33)
[2019-10-03] MEDS ORDERED: ATROPINE INJECTION 1 MG/10 ML SYR (ABBOTT) INJ ONE (22:33)
[2019-10-03] MEDS ORDERED: LIDOCAINE BOLUS 100 MG/5 ML (IMS) SYR INJ ONE (22:33)
[2019-10-03] MEDS ORDERED: MIDAZOLAM 5 MG/5 ML (VERSED) VIAL IJ ONE (22:33)
[2019-10-03] MEDS ORDERED: AMIODARONE 450 MG/9 ML (CORDARONE) VIAL IV ONE ×2 (22:33)
[2019-10-03] MEDS ORDERED: EPINEPHrine 0.1 MG/ML 10 ML (HOSPIRA) SYR IJ ONE ×2 (22:33)
[2019-10-03 22:45] LABS: INR 0.9 (0.8-1.4); PROTHROMBIN TIME PATIENT 12.8 SEC (12.2-14.7)
[2019-10-03 22:46] LABS: ALBUMIN 3.9 GM/DL (3.2-4.5); BILIRUBIN,TOTAL 0.3 MG/DL (0.1-1.0); CREATININE SERUM 1.09 MG/DL (0.60-1.30); POTASSIUM 3.3 MMOL/L (3.6-5.0); TOTAL PROTEIN 7.6 GM/DL (6.4-8.2)
[2019-10-03] MEDS ORDERED: MIDAZOLAM 5 MG/5 ML (VERSED) VIAL ONE (22:47)
[2019-10-03] MEDS ORDERED: LIDOCAINE 1% INJ 20 ML 20 ML VIAL ONE (22:47)
[2019-10-03] MEDS ORDERED: NS IV 1000 ML 3,000 ML ONE (22:47)
[2019-10-03] MEDS ORDERED: NITRO DRIP 25000 MCG/D5W 250 ML IV ONE (22:48)
--- NOTE | 2019-10-03 22:51 | NUR ---
2251- PT SUDDENLY BECAME UNRESPONSIVE. NO PULSES PRESENT. V FIB VISUALIZED ON THE MONITOR. CPR INITIATED BY THIS NURSE CODE IS CALLED. 2251-PT IN V FIB, SHOCKED PT. 2252- 1MG EPI GIVEN IV 2253- 2ND SHOCK GIVEN 2254- PULSES RETURN, LIZ ON MONITOR- 0.5 ATROPINE GIVEN IV 2254- V TAC ON MONITOR, DISTAL PULSES WEAK. 2255- 100MG LIDOCAINE GIVEN IV 2256- DR KRAUSE AT BEDSIDE. 2256- 2.5MG VERSED GIVEN 2258-20MG ETOMIDATE GIVEN 2259- 50MG ROCURONIUM GIVEN IV 2300-75MCG GIVEN IV 2300- PT SUCCESSFULLY INTUBATED, 25CM AT THE THEETH, POSITIVE COLOR CHANGE ON BVM, BILAT BREATH SOUNDS PRESENT 2300- Addendum: 10/04/19 at 0143 by [id number] 2251- PT SUDDENLY BECAME UNRESPONSIVE. NO PULSES PRESENT. V FIB VISUALIZED ON THE MONITOR. CPR INITIATED BY THIS NURSE CODE IS CALLED. 2251-PT IN V FIB, SHOCKED PT. 2252- 1MG EPI GIVEN IV 2253- 2ND SHOCK GIVEN 2254- PULSES RETURN, LIZ ON MONITOR- 0.5 ATROPINE GIVEN IV 2254- V TAC ON MONITOR, DISTAL PULSES WEAK. 2255- 100MG LIDOCAINE GIVEN IV, DISTAL PULSES PRESENT Stephenie- DR KRAUSE AT BEDSIDE. 2256- 2.5MG VERSED GIVEN 2258-20MG ETOMIDATE GIVEN 2259- 50MG ROCURONIUM GIVEN IV 2300-75MCG GIVEN IV 2300- PT SUCCESSFULLY INTUBATED, 25CM AT THE THEETH, POSITIVE COLOR CHANGE ON BVM, BILAT BREATH SOUNDS PRESENT 2300- BLOOD PRESSURE OBTAINED. 172/126 2301- 2.5MG OF VERSED 2305- CHEST XRAY OBTAINED TO CONFIRM PLACEMENT OF ET TUBE 2305- PT TO DECORATIVE CUTTING MACHINE TENDER WITH STAFF.
[2019-10-03] MEDS ORDERED: proPOfol 200 MG/20 ML (DIPRIVAN) VIAL IV ONE (23:14)
[2019-10-03] MEDS ORDERED: PROPOFOL DRIP (ICU) 100 ML IV ONE (23:15)
[2019-10-03] MEDS ORDERED: NS (IVPB) 250 ML ONE ×2 (23:15→23:29)
[2019-10-03] MEDS ORDERED: NOREPINEPHRINE 4 MG/4 ML (LEVOPHED) AMP IV ONE (23:15)
[2019-10-03] MEDS ORDERED: ATROPINE INJECTION 1 MG/10 ML SYR (ABBOTT) ONE (23:18)
[2019-10-03] MEDS ORDERED: NS IV 1000 ML 1,000 ML ONE ×3 (23:24→23:59)
[2019-10-03] MEDS ORDERED: niCARdipine 25 MG/10 ML (CARDENE) AMP IV ONE (23:29)
[2019-10-03] MEDS ORDERED: EPTIFIBATIDE BOLUS 20 ML IV ONE (23:39)
[2019-10-03] MEDS ORDERED: AMIODARONE (OMNICELL DRIP KIT) 150 MG/3 ML IV ONE (23:39)
[2019-10-03] MEDS ORDERED: DOPamine DRIP 250 ML IV ONE (23:52)
[2019-10-04] VITALS (34 sets, daily range): BP systolic 62–164; BP diastolic 39–115
[2019-10-04] MEDS ORDERED: HEParin DRIP 25000 UNIT/500ML 500 ML IV ONE (00:20)
[2019-10-04] MEDS ORDERED: LIDOCAINE 1% INJ 20 ML 20 ML VIAL ONE (00:23)
[2019-10-04] MEDS ORDERED: NOREPINEPHRINE 4 MG/4 ML (LEVOPHED) AMP IV ONE ×6 (00:34→06:59)
[2019-10-04] MEDS ORDERED: NS (IVPB) 250 ML ONE ×5 (00:34→06:58)
--- NOTE | 2019-10-04 01:08 | History & Physicial-Cardiolgy ---
HPI-Cardiology Cardiology Consultation: Date of Consultation 10/03/19 Date of Admission 10/03/2019 Attending Physician Adalid Minor MD Admitting Physician Debra Damon DO Consulting Physician Ronny MINOR MD HPI: Time Seen by a Provider: 10:55 Chief Complaint: Chest pain This is a 69-year-old lady who is a patient of Dr. Tobias as an outpatient. She has previous history of an IN and multiple PCI in 2011. She has history of COPD, active smoking, hyperlipidemia, hypertension. She has family history of premature CAD. She's been having shortness of breath in the last few weeks. She is also had episodes of chest pain requiring nitroglycerin. However she started to have acute chest pain on 10/03/2019 at around 9 p.m. Severe substernal, 07/13, not radiating. Associated with shortness of breath. She presented to the ER and was diagnosed as acute inferior posterior STEMI. The catheter lab was called emergently. She had numerous V. fib arrests requiring defibrillation in the ER. Cardiogenic shock requiring pressors. She was intubated/ventilated. Emergent consent was taken from the patient before she was intubated. Review of Systems-Cardiology Review of Systems Constitutional: As described under HPI; No As described under HPI, No no symptoms reported, No chills, No fever, No lightheadedness Eyes: No As described under HPI, No no symptoms reported, No blindness, No blurred vision, No contact lenses, No drainage, No decreased acuity, No foreign body sensation, No pain, No vision change Ears/Nose/Throat: No As described under HPI, No no symptoms reported, No chronic hearing loss, No ear discharge, No ear pain, No nasal drainage, No ulcerations Respiratory: No no symptoms reported; As described under HPI; No As described under HPI, No cough, No orthopnea; shortness of breath; No SOB with excertion Cardiovascular: No no symptoms reported; As described under HPI; No As described under HPI; chest pain; No edema, No irregular heart rate, No lighthea dedness, No palpitations Gastrointestinal: No no symptoms reported, No As described under HPI, No abdomen distended, No abdominal pain, No blood streaked bowels, No constipation, No diarrhea, No nausea, No vomiting, No stool coloration changes Genitourinary: No As described under HPI, No burning, No dysuria, No discharge, No frequency, No flank pain, No hematuria, No urgency : Yes : No Skin: No rash, No skin related problems, No ulcerations Psychiatric/Neurological: No anxiety, No depression, No seizure, No focal weakness, No syncope Hematologic: No bleeding abnormalities All Other Systems Reviewed Negative Unless Noted: Yes GEL-Gmkswb-Fqjsld Hx Patient Social History Alcohol Use: Occasionally Uses Recreational Drug Use: No Smoking Status: Current Everyday Smoker Type Used: Cigarettes Recent Foreign Travel: No Recent Infectious Disease Expo: No Hospitalization with Isolation: Denies Immunizations Up To Date Tetanus Booster (TDap): Unknown Date of Pneumonia Vaccine: Aug 21, 2015 Date of Influenza Vaccine: Aug 21, 2015 Past Medical History PMH As described under Assessment. Allergies and Home Medications Allergies Coded Allergies: Penicillins (Unverified Allergy, Mild, 09/04/09) codeine (Unverified Allergy, Mild, 09/04/09) morphine (Unverified Allergy, Mild, 09/04/09) Home Medications Acetaminophen 500 Mg Tablet, 1,000 MG PO Q6H PRN for PAIN, (Reported) TAKES 2 (500MG) TABLETS Albuterol Sulfate 18 Gm Hfa.aer.ad, 2 PUFF IH Q4H PRN for SHORTNESS OF BREATH, (Reported) Aspirin 81 Mg Tab.chew, 81 MG PO 0900, (Reported) Atorvastatin Calcium 20 Mg Tablet, 20 MG PO 0900, (Reported) Cetirizine HCl 10 Mg Tablet, 10 MG PO DAILY, (Reported) Cholecalciferol (Vitamin D3) 5,000 Unit Tablet, 5,000 UNIT PO DAILY, (Reported) Citalopram Hydrobromide 40 Mg Tablet, 40 MG PO DAILY, (Reported) Clopidogrel Bisulfate 75 Mg Tablet, 75 MG PO 0900, (Reported) Fluticasone/Umeclidin/Vilanter 1 Each Blst.w.dev, 1 EACH IH DAILY, (Reported) Gabapentin 800 Mg Tablet, 800 MG PO TID, (Reported) Levothyroxine Sodium 75 Mcg Tablet, 75 MCG PO 0800, (Reported) Loperamide HCl 2 Mg Tablet, 2 MG PO PRN PRN for DIARRHEA, (Reported) Lorazepam 1 Mg Tablet, 1 MG PO HS, (Reported) Nitroglycerin 0.4 Mg Tab.subl, 0.4 MG SL UD PRN for CHEST PAIN, (Reported) Ranitidine HCl 150 Mg Tablet, 150 MG PO HS PRN for HEARTBURN, (Reported) Vit A,C & E/Lutein/Minerals 1 Each Tablet, 1 EACH PO DAILY, (Reported) Zafirlukast 20 Mg Tablet, 20 MG PO BID, (Reported) Patient Home Medication List Home Medication List Reviewed: Yes Physical Exam-Cardiology Physical Exam Vital Signs/I&O 10/03/19 10/03/19 22:05 22:05 Pulse 87 Resp 25 B/P (MAP) 145/89 (107) Pulse Ox 100 100 O2 Delivery Room Air Nasal Cannula O2 Flow Rate 4.00 Capillary Refill : Less Than 3 Seconds Constitutional: apparent distress HEENT: PERRL; No discharge; hearing is well preserved, oral hygience is good; No ulceration, No xanthelasmas are seen Neck: No carotid bruit; carotid pulses are 2 + bilaterally Respiratory: accessory muscle use, respiratory distress, chest is bilaterally symmetric, other (decreased air entry bilaterally.) Cardiovascular: regular rate-rhythm, tachycardia, S1 and S2 Gastrointestinal: soft, audible bowel sounds; No spleenomegaly Rectal: deferred Extremities: No clubbing, No cyanosis; no lower extremity edema bilateral; No significant edema Neurologic/Psychiatric: other (she was in the process of being intubated/ventilated) Skin: cool; No rash, No ulcerations Data Review Labs Laboratory Tests 10/03/19 22:16: White Blood Count 12.9H, Red Blood Count 4.99, Hemoglobin 13.7, Hematocrit 43, Mean Corpuscular Volume 87, Mean Corpuscular Hemoglobin 28, Mean Corpuscular Hemoglobin Concent 32, Red Cell Distribution Width 17.0H, Platelet Count 254, M gisell Platelet Volume 10.9H, Neutrophils (%) (Auto) 49, Lymphocytes (%) (Auto) 40, Monocytes (%) (Auto) 10, Eosinophils (%) (Auto) 2, Basophils (%) (Auto) 0, Neutrophils # (Auto) 6.3, Lymphocytes # (Auto) 5.1H, Monocytes # (Auto) 1.2H, Eosinophils # (Auto) 0.2, Basophils # (Auto) 0.0, Prothrombin Time 12.8, INR Comment 0.9, Activated Partial Thromboplast Time 27, Sodium Level 140, Potassium Level 3.3L, Chloride Level 104, Carbon Dioxide Level 20L, Anion Gap 16H, Blood Urea Nitrogen 9, Creatinine 1.09, Estimat Glomerular Filtration Rate 50, BUN/Creatinine Ratio 8, Glucose Level 112H, Calcium Level 10.0, Corrected Calcium 10.1, Magnesium Level 2.0, Total Bilirubin 0.3, Aspartate Amino Transf (AST/SGOT) 18, Alanine Aminotransferase (ALT/SGPT) 20, Alkaline Phosphatase 191H , Myoglobin 31.0, Troponin I < 0.028, Total Protein 7.6, Albumin 3.9 ECG Impression ECG Initial ECG Rhythm: V.Fib Initial ECG Impression: Acute IN A/P-Cardiology Assessment/Admission Diagnosis Acute inferior posterior STEMI, Cardiogenic shock requiring pressors, Numerous ventricular fibrillation arrests requiring defibrillation, Active smoking, neck sign COPD, Hypertension, Hyperlipidemia Admission Status: Inpatient Order (span 2 midnights) Reason for Inpatient Admission: Acute STEMI, cardiogenic shock, ventricular fibrillation arrest Plan Acute inferior posterior STEMI, emergent coronary angiography, aspirin, Brilinta, 5000 units of IV heparin given Cardiogenic shock requiring pressors, Numerous ventricular fibrillation arrests requiring defibrillation, IV lidocaine given in the ER. Active smoking, COPD, Hypertension, Hyperlipidemia Critically ill patient Clinical Quality Measures AMI/AHF: ASA po Prior to arrival: Ronny Galeas MD Oct 04, 2019 01:08
--- NOTE | 2019-10-04 01:14 | Coronary Angiography & PCI ---
Coronary Angiography & PCI DATE OF PROCEDURE: 10/04/19 INDICATION: Acute inferior posterior STEMI, cardiogenic shock, multiple episodes of ventricular fibrillation requiring defibrillation. PREOPERATIVE DIAGNOSIS: Acute inferior posterior STEMI, cardiogenic shock, multiple episodes of ventricular fibrillation requiring defibrillation. POSTOPERATIVE DIAGNOSIS: Acute in-stent occlusion in the RCA and left circumflex artery requiring primary PCI. Primary PCI done during active CPR and numerous defibrillation episodes. HISTORY: This is a 69-year-old lady with previous history of RI and PCI to the RCA and left circumflex artery in 2011. She has history of active smoking and COPD. According to the family she is been having worsening shortness of breath in the last 2-3 weeks and has used nitroglycerin tablets increasingly in the last few weeks. However she presented with severe chest pain late evening. EKG showed injury pattern in the inferior posterior leads. Diagnosis acute inferior posterior STEMI. Patient had numerous episodes of ventricular fibrillation in the ER requiring defibrillation. She was intubated/ventilated. Hypotensive requiring pressors. Emergent coronary angiography. PROCEDURES PERFORMED: 1.Coronary angiography. 2.Left heart catheterization. 3.aortic arch angiogram: Medical necessity: For intra-aortic balloon placement. 4. Primary PCI to the mid RCA. 5. Primary PCI to the mid left circumflex artery. 6. Intra-aortic balloon pump placement. COMPLICATIONS: None. SPECIMENS: None. ESTIMATED BLOOD LOSS: 10 mL ANESTHESIA: Conscious sedation ANTICOAGULATION: IV heparin CONTRAST: 200 mL. FLUOROSCOPY: 18.5 minutes. FLOUROSCOPY DOSE: 2139 mgy. PROCEDURE DETAILS: The patient is a 69 female and was brought to the tender labor emergently for inferior posterior STEMI with numerous episodes of ventricular fibrillation requiring defibrillation in the ER, cardiogenic shock on pressors. When the patient arrived to the catheter lab she had no systolic pressure. Ac cess done in the right femoral artery with the 6 Sami sheath. Very low to zero systolic blood pressure. Active CPR was done off-and-on during the procedure. PCI to the RCA was done during active CPR . Especially at the beginning. Also there were numerous episodes of ventricular fibrillation during the procedure requiring numerous shocks. JR4 guide catheter, whisper extra-sup port guidewire and 2.0 x 15 mm balloon. Left heart catheterization and aortic arch angiogram done with a pigtail catheter. Left coronary engaged with a JL4 catheter. See details below. FINDINGS: 1.Left main: Patent. 2.LAD: Patent. 3.Left circumflex artery: Acutely occluded stent in the mid left circumflex artery with faint distal filling. 4.RCA: Subtotal occlusion of mid RCA stent with slow flow. 5.Left heart catheterization: LV pressure 112/12 mmHg. LVEDP 13 mmHg. Aortic pressure 108/76 mmHg. LVEF preserved at 50 percent with no significant wall motion abnormality on high-dose vasopressors. No gradient across the aortic valve. 6. Aortic arch angiogram, medical necessity: For intra-aortic balloon placement. No evidence of aortic aneurysm or dissection. RECOMMENDATIONS: 1. PCI to the RCA is recommended. 2. PCI to the left circumflex artery is recommended. 3. Intra-aortic balloon placement is recommended. INTERVENTION DETAILS: During the initial part of the intervention, we were doing active CPR. Systolic blood pressure was 0 with PEA. We went in with a JR4 guide catheter, whisper extra-support guidewire and a 2.0 x 15 mm balloon. When the guide catheter was placed in the aorta there was no flow back into the guide catheter. I aspirated as much as possible. We then placed a guide catheter in the ostium of the RCA. Again this was during active CPR. Small amount of air was injected into the RCA. The air quickly dispersed into the smaller vessels. I took the balloon and the wire and advanced it into the RCA and was able to break up the air bubbles and quickly get rid of it. We also quickly did a balloon angioplasty in the mid/distal part of the RCA stent which was subtotally occluded. This was at 11.21 p.m. Door to balloon time of 70 minutes. There was a delay in bringing the patient to the catheter lab due to numerous episodes of ventricular fibrillation in the ER requiring defibrillation as well as the need for intubating/ventilating the patient. Aspirin, Brilinta bolus were already given in the ER on arrival. 5000 international units of heparin was given in the ER as well. ACT during the procedure was over 200 seconds. The tip of the wire was placed in the PL branch. We had initially used an emerge 2.0 x 15 mm balloon for initial balloon dilatation. We then took an NC Quantum 3.0 x 20 mm balloon and did balloon angioplasty from the distal RCA till the proximal RCA with reestablishment of flow. Nonflow limiting dissection was noted just proximal to the previous stent. We placed a Xience Candace 3 x 23 mm stent at 16 laly for 30 seconds. Postdilatation was done with the same stent balloon in the overlap region. LEÓN-3 flow and no residual stenosis was noted. The wire and balloon were taken out and post-angiogram showed good flow distally. We then went in with a JL4 guide catheter and a new whisper wire. We quickly crossed the occluded segment in the proximal part of a previously placed stent. I used an emerge 2.0 x 15 mm balloon to cross the lesion. Just by this maneuver withou t deploying the balloon we were able to establish some flow into the distal vessel. We then did a balloon angioplasty and noted a significant lesion. Numerous balloon angiograms were done at 10 laly. We then took an NC Quantum 3.0 x 20 mm and performed high pressure balloon angioplasty in the proximal segment of the stent. Good results were noted. We then took a science Candace 3 x 18 mm drug-eluting stent and deployed it in the proximal segment of the stent at 16 laly for 29 seconds.. The overlap zone was postdilated with the same stent balloon. Excellent results with LEÓN 3 flow and no residual stenosis. The wire and balloon were taken out. No complications noted. We then performed an aortic arch angiogram. There was no aortic dissection. An intra-aortic balloon pump was placed. During the procedure patient continued to have numerous episodes of ventricular fibrillation treated with defibrillation even when there was LEÓN-3 flow restored. Amiodarone bolus was given during the procedure. Amiodarone drip was started. Heparin infusion was started. We also gave double bolus of Integrilin. However the patient started to bleed from the nostrils and the mouth, therefore Integrilin infusion was not started. We also started dopamine infusion and increase the dose of non-epinephrine. At the end of the procedure augmented blood pressure was 140 mmHg. However on augmented blood pressure was below 100 mmHg. Significant improvement in ST elevation was noted. At the end of the procedure there was almost no ST elevation noted at least on the telemetry screens. CONCLUSIONS: 1. Acute inferior posterior STEMI with occluded proximal left circumflex artery stent and subtotal occlusion of the mid/distal RCA stent. Revascularization done with primary PCI of both vessels with balloon angioplasty and one each drug-eluting stent. LEÓN-3 flow restored at the end of the procedure. Long-t erm dual antiplatelet therapy. 2. Cardiogenic shock on high-dose pressors. Intra-aortic balloon pump placed at the end. IV heparin. 3. Numerous episodes of cardiac arrest, PEA, V. fib arrest requiring defibrillation. Initial part of the intervention was done during active CPR. IV amiodarone started during the procedure. 4. Critically ill patient with poor prognosis. I discussed at length with the patient and family and explained the above. They shared with me her wishes that if resuscitative efforts are futile then we should stop. I discussed this with the nursing staff and Dr. Sepulveda as well. Adalid Minor MD, FACP, FACC, [facility] Interventional Cardiology Ronny MINOR MD Oct 04, 2019 01:14
[2019-10-04] MEDS ORDERED: PATIENT MAY USE OWN MEDS, ALL PO SCH (01:15)
[2019-10-04] MEDS: NOREPINEPHRINE 8 MG in NS (IVPB) 250 ML IV SCH ×11 (01:30→22:05)
[2019-10-04] MEDS: AMIODARONE 450 MG/250 ML D5W EXCEL IV SCH ×6 (01:30→23:04)
[2019-10-04] MEDS: DOPamine DRIP 400 MG/250 ML D5W (PRE-MIX) IV SCH (01:30)
[2019-10-04] MEDS ORDERED: MAGNESIUM 1 GM/100 ML IVPB 200 ML IV ONE ×3 (01:43→03:33)
[2019-10-04] MEDS: LIDOCAINE DRIP 500 ML IV SCH ×2 (01:52→18:00)
[2019-10-04] MEDS: MAGNESIUM 1 GM/D5W 100 ML IVPB IV SCH (01:56)
[2019-10-04 02:01] LABS: ABG BASE EXCESS -7.8 MMOL/L (-2.5-2.5); ABG OXYGEN SATURATION 88 % (94-100); ABG PCO2 66 MMHG (35-45); ABG PO2 67 MMHG (79-93); ABG TCO2 22.7 MMOL/L (21.0-31.0)
[2019-10-04 02:03] LABS: ABG PH 7.11 (7.37-7.43); ALLENS TEST YES-POS; INSPIRED O2 100%; VENTILATOR YES
[2019-10-04 02:04] LABS: PATIENT TEMP 35.9
[2019-10-04] MEDS ORDERED: AMIODARONE (OMNICELL DRIP KIT) 150 MG/3 ML IV ONE (02:08)
[2019-10-04] MEDS ORDERED: D5W 100 ML IVPB 0 ML IV ONE (02:09)
[2019-10-04] MEDS ORDERED: POTASSIUM CL 10MEQ/50ML IVPB 200 ML IV ONE (02:10)
[2019-10-04] MEDS ORDERED: MIDAZOLAM FOR DRIPS 10 MG/2 ML VIAL ONE (02:16)
[2019-10-04] MEDS ORDERED: MIDAZOLAM 5 MG/5 ML (VERSED) VIAL ONE (02:16)
[2019-10-04] MEDS ORDERED: NS (IVPB) 100 ML ONE ×2 (02:17→17:43)
[2019-10-04] MEDS: POTASSIUM CL 10 MEQ/50 ML IVPB (PRE-MIX) IV SCH ×4 (02:18→05:18)
[2019-10-04] MEDS ORDERED: MIDAZOLAM 5 MG/5 ML (VERSED) VIAL IVP ONE (02:23)
[2019-10-04] MEDS: MIDAZOLAM INJECTION FOR DRIPS 50 MG in NS (IVPB) 90 ML IV SCH (02:30)
[2019-10-04] MEDS ORDERED: PHENYLEPHRINE INJ 10 MG/ML (FOR DRIP KITS ONLY) ONE ×3 (03:56→06:47)
[2019-10-04] MEDS ORDERED: meTOprolol 5 MG/5 ML (LOPRESSOR) VIAL ONE (03:57)
[2019-10-04] MEDS ORDERED: D5W IV SOLUTION (EXCEL) 250 ML IV ONE ×2 (03:57→05:06)
[2019-10-04 03:58] LABS: BASOPHILS % (AUTO) 0 % (0-10); EOSINOPHILS % (AUTO) 0 % (0-10); HEMATOCRIT 38 % (35-52); HEMOGLOBIN 11.9 G/DL (11.5-16.0); LYMPHOCYTES # (AUTO) 2.8 X 10^3 (1.0-4.0); LYMPHOCYTES % (AUTO) 11 % (12-44); MEAN CORPUSCULAR HEMOGLOBIN 28 PG (25-34); MEAN CORPUSCULAR HGB CONC 31 G/DL (32-36); MEAN CORPUSCULAR VOLUME 88 FL (80-99); MONOCYTES # (AUTO) 1.9 X 10^3 (0.0-1.0); MONOCYTES % (AUTO) 7 % (0-12); NEUTROPHILS # (AUTO) 20.2 X 10^3 (1.8-7.8); NEUTROPHILS % (AUTO) 81 % (42-75); PLATELET COUNT 304 10^3/uL (130-400); RED CELL DISTRIBUTION WIDTH 16.9 % (10.0-14.5); WHITE BLOOD COUNT 24.9 10^3/uL (4.3-11.0)
--- NOTE | 2019-10-04 04:00 | NUR ---
CRITICAL PH AND BICARB ON ABG-1 AMP BICARB GIVEN PER DR SHARMA
[2019-10-04 04:01] LABS: ABG BASE EXCESS -14.1 MMOL/L (-2.5-2.5); ABG OXYGEN SATURATION 98 % (94-100); ABG PCO2 39 MMHG (35-45); ABG PO2 108 MMHG (79-93); ABG TCO2 14.5 MMOL/L (21.0-31.0)
[2019-10-04 04:02] LABS: ABG PH 7.15 (7.37-7.43)
[2019-10-04 04:04] LABS: ALLENS TEST ART LINE
[2019-10-04 04:05] LABS: INSPIRED O2 100%; PATIENT TEMP 35.6; VENTILATOR YES
[2019-10-04] MEDS: PHENYLEPHRINE DOUBLE STRENGTH 20MG/ 250 ML IV SCH ×16 (04:08→21:38)
[2019-10-04] MEDS ORDERED: HEParin DRIP 25000 UNIT/500ML 500 ML IV SCH (04:18)
[2019-10-04 04:23] LABS: CALCIUM 7.1 MG/DL (8.5-10.1); CREATININE SERUM 1.27 MG/DL (0.60-1.30); MAGNESIUM 4.3 MG/DL (1.6-2.4); PHOSPHORUS 4.1 MG/DL (2.3-4.7)
[2019-10-04 04:25] LABS: CHOLESTEROL 156 MG/DL (< 200); HDL CHOLESTEROL 26 MG/DL (40-60); TRIGLYCERIDES 167 MG/DL (<150); VLDL CHOLESTEROL 33 MG/DL (5-40)
[2019-10-04] MEDS ORDERED: NS IV 500 ML 500 ML ONE (04:25)
[2019-10-04 04:37] LABS: INR 1.2 (0.8-1.4); PARTIAL THROMBOPLASTIN TIME > 200 SEC (24-35); PROTHROMBIN TIME PATIENT 15.5 SEC (12.2-14.7)
[2019-10-04] MEDS ORDERED: LIDOCAINE BOLUS 100 MG/5 ML (IMS) SYR IV ONE (04:45)
[2019-10-04] MEDS ORDERED: PHENYLEPHRINE 10 MG/NS 250 ML IV SCH ×2 (05:00)
[2019-10-04] MEDS ORDERED: meTOprolol 5 MG/5 ML (LOPRESSOR) VIAL IV ONE (05:00)
[2019-10-04] MEDS ORDERED: NS IV 500 ML 500 ML IV SCH (05:15)
--- NOTE | 2019-10-04 05:46 | Procedure/Intervention Note ---
Procedure Note Vital Signs Vital Signs Date Time Temp Pulse Resp B/P (MAP) Pulse Ox O2 Delivery O2 Flow Rate FiO2 10/04/19 05:00 101 23 121/55 (77) 95 Mechanical Ventilator 100.00 10/04/19 03:25 100 Procedure Note ICU staff and eICU physician requested central line placement. Patient's in critical condition secondary to acute OR and multiple episodes of ventricular tachycardia and ventricular fibrillation that is responding to defibrillation. She is currently on multiple pressors as well as heparin and cardiac lung problem. Require central line for additional pressor support and frequent lab draw. Placed under emergent condition but verbal consent obtained from family. Placed triple lumen 7 Ukrainian 16 cm central line to the right IJ via ultrasound guidance after sterile preparations and draping. Placed line using Seldinger technique times one stick to the right IJ. Good flash and flush. Line secured with suture and covered with sterile dressing. Tolerated procedure well with no complications. Patient does have elevated PTT and does have is from the wound that is controlled with direct pressure. Post procedure chest x-ray ordered. 0555: Chest x-ray shows central line in good position without pneumothorax. Okay to use central line. STEPHANIE SHARMA MD Oct 04, 2019 05:46
--- NOTE | 2019-10-04 05:53 | Progress Note ---
Progress Note Assessment/Plan Date Seen by Provider: Oct 04, 2019 Time Seen by Provider: 05:47 Events since last exam I have seen the patient multiple times in the ICU throughout the night secondary to multiple episodes of ventricular fibrillation or ventricular tachycardia. I did have in-depth discussion with the family regarding plan of care. I did work with the eICU team in managing the patient. In discussion with the family, they are updated on the patient's critical condition and high likelihood that she will not make it through this illness. That being said we will continue current therapy under the direction of the eICU team. She is responding to defibrillation with her ventricular tachycardia or ventricular fibrillation events. She is responding to pressors thus far although has had multiple episodes of hypotension. In talking with the family, they understand the challenges related to the patient's care currently and the high likelihood that the patient was calm to this illness. We will continue efforts at this time. Family does not want compressions and if she does not respond to defibrillation and medicines then they are okay with withdrawing care at that point. We also discussed if she was persistently hypotensive and/or is requiring increasing defibrillation efforts that they would pursue withdrawing care. Patient is doing better at this time though and has not required defibrillation for the last hour and a half. Central line was placed. See procedure note. Remains under the care of cardiology and medicine team with eICU support. Assessment/Plan Acute inferior posterior HI status post heart catheterization with stent placement Vitals Last set of Vitals Signs Vital Signs Date Time Temp Pulse Resp B/P (MAP) Pulse Ox O2 Delivery O2 Flow Rate FiO2 10/04/19 05:00 101 23 121/55 (77) 95 Mechanical Ventilator 100.00 10/04/19 03:25 100 Labs Laboratory Tests 10/03/19 22:16: White Blood Count 12.9H, Red Blood Count 4.99, Hemoglobin 13.7, Hematocrit 43, Mean Corpuscular Volume 87, Mean Corpuscular Hemoglobin 28, Mean Corpuscular Hemoglobin Concent 32, Red Cell Distribution Width 17.0H, Platelet Count 254, Mean Platelet Volume 10.9H, Neutrophils (%) (Auto) 49, Lymphocytes (%) (Auto) 40, Monocytes (%) (Auto) 10, Eosinophils (%) (Auto) 2, Basophils (%) (Auto) 0, Neutrophils # (Auto) 6.3, Lymphocytes # (Auto) 5.1H, Monocytes # (Auto) 1.2H, Eosinophils # (Auto) 0.2, Basophils # (Auto) 0.0, Prothrombin Time 12.8, INR Comment 0.9, Activated Partial Thromboplast Time 27, Sodium Level 140, Potassium Level 3.3L, Chloride Level 104, Carbon Dioxide Level 20L, Anion Gap 16H, Blood Urea Nitrogen 9, Creatinine 1.09, Estimat Glomerular Filtration Rate 50, BUN/Creatinine Ratio 8, Glucose Level 112H, Calcium Level 10.0, Corrected Calcium 10.1, Magnesium Level 2.0, Total Bilirubin 0.3, Aspartate Amino Transf (AST/SGOT) 18, Alanine Aminotransferase (ALT/SGPT) 20, Alkaline Phosphatase 191H , Myoglobin 31.0, Troponin I < 0.028, Total Protein 7.6, Albumin 3.9 10/04/19 01:55: Blood Gas Puncture Site LEFT RADIAL, Blood Gas Patient Temperature 35.9, Arterial Blood pH 7.11*L, Arterial Blood Partial Pressure CO2 66H, Arterial Blood Partial Pressure O2 67L, Arterial Blood HCO3 21L, Arterial Blood Total CO2 22.7, Arterial Blood Oxygen Saturation 88L, Arterial Blood Base Excess -7.8L, Raffy Test YES-POS, Blood Gas Ventilator Setting YES, Blood Gas Inspired Oxygen 100% 10/04/19 03:47: White Blood Count 24.9H, Red Blood Count 4.30L, Hemoglobin 11.9, Hematocrit 38, Mean Corpuscular Volume 88, Mean Corpuscular Hemoglobin 28, Mean Corpuscular Hemoglobin Concent 31L, Red Cell Distribution Width 16.9H, Platelet Count 304, Mean Platelet Volume 11.0H, Neutrophils (%) (Auto) 81H, Lymphocytes (%) (Auto) 11L, Monocytes (%) (Auto) 7, Eosinophils (%) (Auto) 0, Basophils (%) (Auto) 0, Neutrophils # (Auto) 20.2H, Lymphocytes # (Auto) 2.8, Monocytes # (Auto) 1.9H, Eosinophils # (Auto) 0.0, Basophils # (Auto) 0.0, Prothrombin Time 15.5H, INR Comment 1.2, Activated Partial Thromboplast Time > 200*H, Sodium Level 132L, Potassium Level 4.0, Chloride Level 107, Carbon Dioxide Level 12L, Anion Gap 13, Blood Urea Nitrogen 10, Creatinine 1.27, Estimat Glomerular Filtration Rate 42, BUN/Creatinine Ratio 8, Glucose Level 573*H, Calcium Level 7.1L, Magnesium Level 4.3H, Phosphorus Level 4.1, Triglycerides Level 167H, Cholesterol Level 156, LDL Cholesterol Direct 106, VLDL Cholesterol 33, HDL Cholesterol 26L 10/04/19 03:50: Blood Gas Puncture Site RIGHT ART LINE, Blood Gas Patient Temperature 35.6, Arterial Blood pH 7.15*L, Arterial Blood Partial Pressure CO2 39, Arterial Blood Partial Pressure O2 108H, Arterial Blood HCO3 13*L, Arterial Blood Total CO2 14.5L, Arterial Blood Oxygen Saturation 98, Arterial Blood Base Excess -14.1L, Raffy Test ART LINE, Blood Gas Ventilator Setting YES, Blood Gas Inspired Oxygen 100% Clinical Quality Measures AMI/AHF: ASA po Prior to arrival: STEPHANIE Pickering MD Oct 04, 2019 05:53
[2019-10-04] MEDS ORDERED: NORMAL SALINE 250 ML ONE (06:02)
[2019-10-04] MEDS ORDERED: inSUlin (REGULAR) HUMAN 1 UNIT/0.01 ML (CHARGE PER UNIT) ONE ×3 (06:04→14:30)
[2019-10-04] MEDS ORDERED: inSUlin (REGULAR) HUMAN 1 UNIT/0.01 ML (CHARGE PER UNIT) IV ONE (06:15)
[2019-10-04] MEDS ORDERED: inSUlin REGULAR TPN/DRIP ONLY 250 UNITS in NORMAL SALINE 250 ML IV SCH (06:15)
[2019-10-04] MEDS: inSUlin REGULAR TPN/DRIP ONLY 250 UNITS in NORMAL SALINE 250 ML IV SCH ×2 (06:37→23:15)
--- NOTE | 2019-10-04 06:55 | NUR ---
PER E-ICU INSULIN GTT RATE TO START AT 0.1UNITS/KG/HR. PT WEIGHT IS 104KG. 10 UNITS/HOUR IS INITIAL RATE. ORDER CLARIFIED ORDER WITH E-ICU
--- NOTE | 2019-10-04 07:00 | NUR ---
TIMELINE NOTE- 0106-PATIENT ARRIVES TO ICU 7 ACCOMPANIED BY MANAGER OF CASE MANAGEMENT. HEPARIN IS GOING AT 9.88 UNITS/KG. AMIO GTT, LEVO GTT AND DOPAMINE GTT STARTED PER MANAGER OF CASE MANAGEMENT. FULL HEPARIN PROTOCOL INITIATED BY MANAGER OF CASE MANAGEMENT. PT ATTACHED TO ICU MONITOR. PT ATTACHED TO DEFIB PADS AND ZOLL. SINUS TACH 130'S. 0115-JAIMES CATH INSERTED 0130-VTACH ON MONITOR-PT SHOCKED-PT CONVERTED TO SINUS TACH E-ICU NOTIFIED OF PT ARRIVAL AND CONDITION -EICU MOSES'D IN ROOM-FAMILY PRESENT WELL-LIDOCAINE GTT INITIATED AT 1MG/MIN PER E-ICU-PT HAD VTACH ON MONITOR MULTIPLE TIMES. PT SHOCKED AND CONVERTED BACK TO ST 0154-VTACH ON MONITOR-PT SHOCKED-CONVERTED TO SR-100MG BOLUS OF LIDOCAINE ADMIN PER EICU 0156-2 GMS MAGNESIUM GIVEN PER EICU 0158-VTACH ON MONITOR-PT SHOCKED-CONVERTED TO ST 0200-50MG LIDOCAINE BOLUS ADMIN PER EICU 0206-RR ON VENT INCREASED TO 24 PER EICU 0212-LEVO INCREASED TO 1MCG/KG 0218-10 MEQ KCL ADMIN PER EICU 0223-3 MG VERSED GIVEN PER DR SHARMA 0228-VERSED GTT STARTED AT 2MG/HR PER DR SHARMA 0235-50MG LIDOCAINE BOLUS GIVEN PER EICU 0237-LIDOCAINE GTT INCREASED TO 2MG/MIN PER EICU 0238-DOPAMINE GTT DECREASED TO 7.5 0238-LEVO GTT AT 0.8 0240-BALLOON PUMP ON STANDBY PER D-KRH-OVJVLJS 0247-LEVO AT 0.6 0303-DOPAMINE AT 5MCG/KG/MIN 0306-10 MEQ KCL ADMIN PER EICU 0321-DOPAMINE AT 3MCG 0333-DOPAMINE ON STANDBY 0334-BALLOON PUMP ON STAND BY PER EICU-RESUMED 0338-1GM MAG ADMIN PER E-ICU 0343-LEVO AT 0.8 0356-1 GM MAG ADMIN PER EICU 0403-2.5 MG LOPRESSOR PER EICU 0411-LEVO AT 0.6 0456-HEPARIN HELD PER PROTOCOL 0530-DR SHARMA HERE-CENTRAL LINE PLACED 0547-10 MEQ KCL ADMIN PER EICU 0545-CHEST XRAY TAKEN-DR ZACHARY CHAPARRO USE OF CENTRAL LINE. NOTIFIED EICU OF LINE PLACEMENT AND XRAY 0625-HEPARIN DECREASED TO 6.88 UNITS PER KG PER PROTOCOL 0637-INITIATED INSULIN GTT PER PROTOCOL. BG 498- Addendum: 10/04/19 at 0934 by BOB TO RN PT WENT INTO TORSADES, VTACH AND VFIB FREQUENTLY BETWEEN THE TIME OF 0130 AND 0426-SHOCK DELIVERED EACH TIME. EACH TIME PT CONVERTED INTO SR-ST-. E-ICU JOSUÉ'Kvng IN.
--- NOTE | 2019-10-04 07:14 | Diagnostic Imaging Report ---
INDICATION: Chest pain. Comparison made with prior examination 12/25/2015. FINDINGS: The heart size, mediastinal configuration, and pulmonary vascularity are within normal limits. There is no pleural effusion, pneumothorax, or pneumonia. The osseous structures are unremarkable. IMPRESSION: No acute cardiopulmonary abnormality. Dictated by: Dictated on workstation # [id number]
--- NOTE | 2019-10-04 07:18 | Diagnostic Imaging Report ---
INDICATION: Intubation. FINDINGS: Endotracheal tube has its tip just within the right mainstem bronchus and should be withdrawn approximately 2 cm. Heart size is normal. There is moderate failure. There is no pleural effusion or pneumothorax. IMPRESSION: Endotracheal tube needs to be withdrawn 2 cm. Moderate congestive failure. Dictated by: Dictated on workstation # [id number]
--- NOTE | 2019-10-04 07:28 | Diagnostic Imaging Report ---
INDICATION: Evaluate line placement. Comparison made with prior examination 10/03/2019. FINDINGS: The ET and NG tubes are in satisfactory position. There is right internal jugular central venous catheter appears to have its tip in superior vena cava. There is moderate congestive failure. Heart size otherwise stable. There is no pleural effusion or pneumothorax. IMPRESSION: Moderate severe congestive failure. Interval placement of a right internal jugular central venous catheter which has its tip in superior vena cava. The endotracheal tube has been withdrawn and is now 2 cm above the earl. Dictated by: Dictated on workstation # [id number]
[2019-10-04] MEDS ORDERED: EPINEPHrine INJECTION 1 MG/ML AMP IV NR (07:48)
[2019-10-04] MEDS: NS IV 1000 ML 1,000 ML IV SCH ×3 (08:23→21:46)
[2019-10-04] MEDS: VASOPRESSIN INJECTION 20 UNIT in NS (IVPB) 100 ML IV SCH ×2 (08:33→16:19)
--- NOTE | 2019-10-04 08:51 | Consultation - Hospitalist ---
HPI History of Present Illness: HPI/Chief Complaint Pt is a 69yoCM with a PMH of CAD, HTN, and HLD who presented to the ER due to chest pain and was activated as a STEMI. Shortly after arrival she had a V. fib arrest and was coded in the ER multiple times. She was able to be stabilized and taken back to the [facility] where stents were deployed. Despite this she suffered multiple recurrent V. fib arrest through escalating measures including lidocaine and amiodarone drips. Discussions were had with the family by Dr. Sepulveda regarding goals of care and family has elected no further CPR or defibrillations but would like to continue current measures as there is family en route. He is currently on Levophed phenylephrine, vasopressin, and a balloon pump to maintain blood pressure. I discussed goals again within this morning and they agree with no further escalation. Source: patient Exam Limitations: no limitations Date Seen 10/04/19 Attending Physician Ronny Minor MD PCP Debra Damon DO Referring Physician Dr Minor Date of Admission Home Medications & Allergies Home Medications Reviewed patient Home Medication Reconciliation performed by pharmacy medication reconciliations highway traffic control technician and/or nursing. Patients Allergies have been reviewed. Allergies Allergies Coded Allergies Penicillins (Unverified Allergy, Mild, 09/04/09) codeine (Unverified Allergy, Mild, 09/04/09) morphine (Unverified Allergy, Mild, 09/04/09) Past Vbzoqed-Jhhhri-Ebcsep Hx Past Med/Social Hx: Reviewed Nursing Past Med/Soc Hx Patient Social History Alcohol Use: Occasionally Uses Recreational Drug Use: No Smoking Status: Current Everyday Smoker Type Used: Cigarettes Recent Foreign Travel: No Contact w/other who traveled: No Recent Hopitalizations: No Recent Infectious Disease Expo: No Immunizations Up To Date Tetanus Booster (TDap): Unknown Date of Pneumonia Vaccine: Aug 21, 2015 Date of Influenza Vaccine: Aug 21, 2015 Seasonal Allergies Seasonal Allergies: Yes Past Medical History Surgeries: Abdominal, Appendectomy, Bowel Surgery, Cardiac, Coronary Stent, Gallbladder, Hysterectomy Cardiac: Coronary Artery Disease, Heart Attack, Hypertension Reproductive: Yes (X2 MISCARRIAGES) Sexually Transmitted Disease: No HIV/AIDS: No Female Reproductive Disorders: Denies Hysterectomy, Menopausal Gastrointestinal: Gastroesophageal Reflux, Crohns Disease Loss of Vision: Denies Hearing Impairment: Denies Psychosocial: Sleep Difficulties, Depression History of Blood Disorders: No Adverse Reaction to Blood [place]: No Family History Reviewed Nursing Family Hx Review of Systems ROS-Unable to Obtain: intubated/sedated Constitutional: see HPI Physical Exam Physical Exam Vital Signs Vital Signs - First Documented 10/03/19 10/04/19 22:05 08:05 Temp 35.7 Pulse 87 Resp 25 B/P (MAP) 145/89 (107) Pulse Ox 100 O2 Delivery Room Air O2 Flow Rate 4.00 Capillary Refill : Less Than 3 Seconds Height, Weight, BMI Height: 5'5.00" Weight: 233lbs. 0.0oz. 105.340009qn; 36.15 BMI Method:Stated General Appearance: Other (ill appearing, sedated and intubated) HEENT: Other (OG in place, ETT in place) Neck: Other (central line in place with some oozing) Respiratory: Lungs Clear, Other (on vent) Cardiovascular: Regular Rate, Rhythm, Other (balloon pump at bedside) Gastrointestinal: Normal Bowel Sounds, Non Tender, Soft Genital/Rectal: Other (vincent in place) Neurologic/Psychiatric: Other (sedated, unable to obtain) Skin: Normal Color, Warm/Dry Results Results/Procedures Labs Laboratory Tests 10/03/19 22:16 10/04/19 03:47 10/04/19 13:10 10/04/19 18:07 10/05/19 02:56 Patient resulted labs reviewed. Imaging: Reviewed Imaging Report Assessment/Plan Assessment and Plan Assess & Plan/Chief Complaint Cardiac Arrest STEMI CAD S/p stenting by Dr Minor Currently critically ill and on multiple pressors Discussed with family who understand gravity of illness Will continue current measures but not escalate care No further CPR or defibrillation Discussed with Dr Minor Diagnosis/Problems Diagnosis/Problems (1) Cardiogenic shock Status: Acute (2) Acute ST elevation myocardial infarction (STEMI) Status: Acute (3) Sudden cardiac arrest Status: Acute (4) PAD (peripheral artery disease) (5) coronary artery disease Status: Acute Clinical Quality Measures AMI/AHF: ASA po Prior to arrival: No DVT/VTE Risk/Contraindication: Risk Factor Score Per Nursin RFS Level Per Nursing on Admit: 4+=Very High ARAMIS MONTOYA MD Oct 04, 2019 08:51
[2019-10-04] MEDS ORDERED: ASPIRIN E.C. 81 MG (ECOTRIN) TAB PO SCH (09:00)
[2019-10-04] MEDS: TICAGRELOR 90 MG TABLET (BRILINTA) PO SCH ×2 (10:57→20:40)
[2019-10-04 11:38] LABS: ABG BASE EXCESS -15.6 MMOL/L (-2.5-2.5); ABG OXYGEN SATURATION 99 % (94-100); ABG PCO2 37 MMHG (35-45); ABG PO2 225 MMHG (79-93); ABG TCO2 13.2 MMOL/L (21.0-31.0)
[2019-10-04 11:41] LABS: ABG PH 7.13 (7.37-7.43); ALLENS TEST YES-POS; INSPIRED O2 100%; PATIENT TEMP 35.7; VENTILATOR YES
[2019-10-04] MEDS ORDERED: SODIUM BICARBONATE 8.4% VIAL 150 MEQ in D5W 1000 ML IV SOLUTION 1,000 ML IV SCH (13:15)
[2019-10-04 13:22] LABS: ABG BASE EXCESS -13.3 MMOL/L (-2.5-2.5); ABG OXYGEN SATURATION 68 % (94-100); ABG PCO2 46 MMHG (35-45); ABG PO2 41 MMHG (79-93)
[2019-10-04 13:25] LABS: ABG PH 7.12 (7.37-7.43)
[2019-10-04 13:26] LABS: ALLENS TEST YES-POS; INSPIRED O2 50%; VENTILATOR YES
[2019-10-04] MEDS ORDERED: TICAGRELOR 90 MG TABLET (BRILINTA) PO ONE (13:30)
[2019-10-04 13:41] LABS: CALCIUM 7.1 MG/DL (8.5-10.1); CREATININE SERUM 1.44 MG/DL (0.60-1.30); MAGNESIUM 2.8 MG/DL (1.6-2.4); PHOSPHORUS 1.8 MG/DL (2.3-4.7); POTASSIUM 4.1 MMOL/L (3.6-5.0)
[2019-10-04] MEDS: HEParin 1000 UNIT/ML (10ML VIAL) FOR BOLUS IV SCH (13:50)
--- NOTE | 2019-10-04 13:58 | Cardiology Progress Note ---
Cardiology SOAP Progress Note Subjective: Intubated/ventilated Objective: I&O/Vital Signs 10/04/19 10/04/19 10/04/19 10/04/19 01:52 02:00 02:03 02:30 Pulse 133 130 Resp 26 16 B/P (MAP) 134/64 (87) Pulse Ox 89 93 O2 Delivery Mechanical Ventilator Mechanical Ventilator Mechanical Ventilator O2 Flow Rate 100.00 100.00 100.00 FiO2 100 10/04/19 10/04/19 10/04/19 10/04/19 02:30 03:00 03:25 04:00 Pulse 123 121 126 109 Resp 23 24 24 23 B/P (MAP) 127/66 (86) 122/64 (83) 80/51 (61) Pulse Ox 96 89 96 O2 Delivery Mechanical Ventilator Mechanical Ventilator Mechanical Ventilator O2 Flow Rate 100.00 100.00 100.00 FiO2 100 10/04/19 10/04/19 10/04/19 10/04/19 04:00 05:00 06:00 07:00 Pulse 101 102 91 Resp 23 23 B/P (MAP) 121/55 (77) 112/54 (73) Pulse Ox 94 95 95 O2 Delivery Mechanical Ventilator Mechanical Ventilator Mechanical Ventilator O2 Flow Rate 10.00 100.00 100.00 10/04/19 10/04/19 10/04/19 10/04/19 07:00 07:09 08:00 08:00 Pulse 85 90 92 Resp 23 24 24 B/P (MAP) 80/39 (53) 98/49 (65) Pulse Ox 96 94 93 92 O2 Delivery Mechanical Ventilator Mechanical Ventilator Mechanical Ventilator O2 Flow Rate 100.00 100.00 100.00 FiO2 90 10/04/19 10/04/19 10/04/19 10/04/19 08:05 09:00 09:40 10:00 Temp 35.7 Pulse 108 109 109 Resp 24 24 23 B/P (MAP) 143/59 (87) 122/49 (73) Pulse Ox 93 94 94 O2 Delivery Mechanical Ventilator Mechanical Ventilator O2 Flow Rate 100.00 100.00 FiO2 100 10/04/19 10/04/19 10/04/19 10/04/19 11:00 11:25 12:00 12:00 Temp 35.8 Pulse 103 101 Resp 24 24 B/P (MAP) 81/64 (70) 164/115 (131) Pulse Ox 94 93 93 O2 Delivery Mechanical Ventilator Mechanical Ventilator Mechanical Ventilator O2 Flow Rate 100.00 100.00 100.00 10/04/19 13:00 Pulse 105 Resp 25 B/P (MAP) 164/100 (121) Pulse Ox 96 O2 Delivery Mechanical Ventilator O2 Flow Rate 100.00 Weight (Pounds): 233 Weight (Ounces): 0.0 Weight (Calculated Kilograms): 105.150703 Constitutional: other (on mechanical ventilation) Respiratory: chest is bilaterally symmetric, other (decreased air entry bilaterally. On mechanical ventilation) Cardiovascular: regular rate-rhythm, tachycardia, S1 and S2 Gastrointestional: soft, audible bowel sounds; No spleenomegaly Extremities: No clubbing, No cyanosis; no lower extremity edema bilateral; No significant edema Neurologic/Psychiatric: other (on mechanical ventilation) Skin: cool; No rash, No ulcerations Results/Procedures: Labs Laboratory Tests 10/03/19 22:16: White Blood Count 12.9H, Red Blood Count 4.99, Hemoglobin 13.7, Hematocrit 43, Mean Corpuscular Volume 87, Mean Corpuscular Hemoglobin 28, Mean Corpuscular Hemoglobin Concent 32, Red Cell Distribution Width 17.0H, Platelet Count 254, Mean Platelet Volume 10.9H, Neutrophils (%) (Auto) 49, Lymphocytes (%) (Auto) 40, Monocytes (%) (Auto) 10, Eosinophils (%) (Auto) 2, Basophils (%) (Auto) 0, Neutrophils # (Auto) 6.3, Lymphocytes # (Auto) 5.1H, Monocytes # (Auto) 1.2H, Eosinophils # (Auto) 0.2, Basophils # (Auto) 0.0, Prothrombin Time 12.8, INR Comment 0.9, Activated Partial Thromboplast Time 27, Sodium Level 140, Potassium Level 3.3L, Chloride Level 104, Carbon Dioxide Level 20L, Anion Gap 16H, Blood Urea Nitrogen 9, Creatinine 1.09, Estimat Glomerular Filtration Rate 50, BUN/Creatinine Ratio 8, Glucose Level 112H, Calcium Level 10.0, Corrected Calcium 10.1, Magnesium Level 2.0, Total Bilirubin 0.3, Aspartate Amino Transf (AST/SGOT) 18, Alanine Aminotransferase (ALT/SGPT) 20, Alkaline Phosphatase 191H , Myoglobin 31.0, Troponin I < 0.028, Total Protein 7.6, Albumin 3.9 10/04/19 01:55: Blood Gas Puncture Site LEFT RADIAL, Blood Gas Patient Temperature 35.9, Arterial Blood pH 7.11*L, Arterial Blood Partial Pressure CO2 66H, Arterial Blood Partial Pressure O2 67L, Arterial Blood HCO3 21L, Arterial Blood Total CO2 22.7, Arterial Blood Oxygen Saturation 88L, Arterial Blood Base Excess -7.8L, Raffy Test YES-POS, Blood Gas Ventilator Setting YES, Blood Gas Inspired Oxygen 100% 10/04/19 03:47: White Blood Count 24.9H, Red Blood Count 4.30L, Hemoglobin 11.9, Hematocrit 38, Mean Corpuscular Volume 88, Mean Corpuscular Hemoglobin 28, Mean Corpuscular Hemoglobin Concent 31L, Red Cell Distribution Width 16.9H, Platelet Count 304, Mean Platelet Volume 11.0H, Neutrophils (%) (Auto) 81H, Lymphocytes (%) (Auto) 11L, Monocytes (%) (Auto) 7, Eosinophils (%) (Auto) 0, Basophils (%) (Auto) 0, Neutrophils # (Auto) 20.2H, Lymphocytes # (Auto) 2.8, Monocytes # (Auto) 1.9H, Eosinophils # (Auto) 0.0, Basophils # (Auto) 0.0, Prothrombin Time 15.5H, INR Comment 1.2, Activated Partial Thromboplast Time > 200*H, Sodium Level 132L, Potassium Level 4.0, Chloride Level 107, Carbon Dioxide Level 12L, Anion Gap 13, Blood Urea Nitrogen 10, Creatinine 1.27, Estimat Glomerular Filtration Rate 42, BUN/Creatinine Ratio 8, Glucose Level 573*H, Calcium Level 7.1L, Magnesium Level 4.3H, Phosphorus Level 4.1, Triglycerides Level 167H, Cholesterol Level 156, LDL Cholesterol Direct 106, VLDL Cholesterol 33, HDL Cholesterol 26L 10/04/19 03:50: Blood Gas Puncture Site RIGHT ART LINE, Blood Gas Patient Temperature 35.6, Arterial Blood pH 7.15*L, Arterial Blood Partial Pressure CO2 39, Arterial Blood Partial Pressure O2 108H, Arterial Blood HCO3 13*L, Arterial Blood Total CO2 14.5L, Arterial Blood Oxygen Saturation 98, Arterial Blood Base Excess -14.1L, Raffy Test ART LINE, Blood Gas Ventilator Setting YES, Blood Gas Inspired Oxygen 100% 10/04/19 06:18: Glucometer 498*H 10/04/19 08:03: Glucometer 454*H 10/04/19 09:02: Glucometer 549*H 10/04/19 10:11: Glucometer 474*H 10/04/19 11:02: Glucometer 467*H 10/04/19 11:30: Blood Gas Puncture Site RT FEM, Blood Gas Patient Temperature 35.7, Arterial Bl ood pH 7.13*L, Arterial Blood Partial Pressure CO2 37, Arterial Blood Partial Pressure O2 225H, Arterial Blood HCO3 12*L, Arterial Blood Total CO2 13.2L, Arterial Blood Oxygen Saturation 99, Arterial Blood Base Excess -15.6L, Raffy Test YES-POS, Blood Gas Ventilator Setting YES, Blood Gas Inspired Oxygen 100% 10/04/19 11:57: Activated Partial Thromboplast Time 65H 10/04/19 12:05: Glucometer 422*H 10/04/19 13:10: Blood Gas Puncture Site RT CENT LINE, Blood Gas Patient Temperature 36.0, Arterial Blood pH 7.12*L, Arterial Blood Partial Pressure CO2 46H, Arterial Blood Partial Pressure O2 41L, Arterial Blood HCO3 15*L, Arterial Blood Total CO2 16.0L, Arterial Blood Oxygen Saturation 68L, Arterial Blood Base Excess - 13.3L, Raffy Test YES-POS, Blood Gas Ventilator Setting YES, Blood Gas Inspired Oxygen 50%, Sodium Level 134L, Potassium Level 4.1, Chloride Level 112H, Carbon Dioxide Level 11L, Anion Gap 11, Blood Urea Nitrogen 11, Creatinine 1.44H, Estimat Glomerular Filtration Rate 36, BUN/Creatinine Ratio 8, Glucose Level 328H, Lactic Acid Level 5.42*H, Calcium Level 7.1L, Phosphorus Level 1.8L, Magnesium Level 2.8H, B-Type Natriuretic Peptide 353.8H 10/04/19 13:13: Glucometer 320H A/P: Assessment/Dx: Acute inferior posterior STEMI, Cardiogenic shock requiring pressors, Numerous ventricular fibrillation arrests requiring defibrillation, Uncontrolled diabetes, Acute respiratory failure with metabolic/respiratory Acidosis, Acute kidney injury, Active upper airway bleeding, currently resolved Active smoking, COPD, Hypertension, Hyperlipidemia Plan: Acute inferior posterior STEMI, status post primary PCI to the RCA and left circumflex artery with drug-eluting stents. Both acute occlusions within previously placed stents. Procedure was done during active CPR and numerous episodes of ventricular fibrillation requiring defibrillation. Aspirin, Brilinta, IV heparin. Echocardiogram showed an EF of 40 percent with inferior and lateral hypokinesis. Cardiogenic shock requiring multiple pressors including levophed, Star- Synephrine, vasopressin. Augmented blood pressure on intra-aortic balloon pump of 739312 mmHg. On augmented blood pressure 100 mmHg. LVEDP during left heart catheterization was 32 mmHg. The patient might require IV Lasix. Acute kidney injury, worsening kidney function. However making reasonable amount of urine at this point in time. Numerous ventricular fibrillation arrests requiring defibrillation, overnight numerous episodes of polymorphic VT and ventricular fibrillation requiring cardioversion. Was started on lidocaine infusion, amiodarone infusion, magnesium and potassium. 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 Last ventricular fibrillation arrest and defibrillation at 4.27 a.m. this morning. Uncontrolled diabetes, insulin infusion. Deferred to primary team and eICU. Acute respiratory failure with metabolic/respiratory Acidosis, was requiring 100 percent FiO2 oxygen earlier in the day. FiO2 reduced to 50 percent and PEEP of 10. Deferred to eICU. Active upper airway bleeding, currently resolved. Due to active bleeding from the nose and mouth we had to stop IV Integrilin. Controlled for now. Active smoking, COPD, Hypertension, Hyperlipidemia Critically ill patient. Over 30 minutes were spent taking care of the patient and talking to the family. I had another lengthy discussion with the entire family. I discussed the very critical nature of the patient and the poor prognosis despite optimal medical therapy. They understand. They would not like to continue any resuscitative efforts if it is considered futile. I appreciate the help of eICU, Dr. Sepulveda, Dr. Patel and the nursing staff. Thank you for your consultation. Please call me if you have any questions. Adalid Minor MD, FACP, FACC, FSCAI, FHRS, CCDS Interventional Cardiology Cardiac Electrophysiology Vascular Medicine and Endovascular Interventions Focused Exam Lactate Level 10/04/19 13:10: Lactic Acid Level 5.42*H Lactic Acid Level Laboratory Tests Test 10/04/19 13:10 Lactic Acid Level 5.42 MMOL/L (0.50-2.00) *H Clinical Quality Measures AMI/AHF: ASA po Prior to arrival: Ronny Galeas MD Oct 04, 2019 13:58
[2019-10-04] MEDS ORDERED: inSUlin (REGULAR) HUMAN 1 UNIT/0.01 ML (CHARGE PER UNIT) IV NR (14:45)
[2019-10-04] MEDS ORDERED: fentaNYL INJECTION 100 MCG/2 ML AMP ONE (17:36)
[2019-10-04] MEDS ORDERED: fentaNYL (OMNICELL DRIP KIT ONLY) 250 MCG/5 ML AMP ONE (17:42)
[2019-10-04] MEDS ORDERED: fentaNYL INJECTION 100 MCG/2 ML AMP IVP PRN (17:45)
[2019-10-04] MEDS ORDERED: fentaNYL INJECTION 1,250 MCG in NS (IVPB) 250 ML IV SCH (17:45)
[2019-10-04 18:14] LABS: BASOPHILS % (AUTO) 0 % (0-10); EOSINOPHILS % (AUTO) 0 % (0-10); HEMATOCRIT 35 % (35-52); HEMOGLOBIN 11.1 G/DL (11.5-16.0); LYMPHOCYTES # (AUTO) 1.7 X 10^3 (1.0-4.0); LYMPHOCYTES % (AUTO) 11 % (12-44); MEAN CORPUSCULAR HEMOGLOBIN 28 PG (25-34); MEAN CORPUSCULAR HGB CONC 31 G/DL (32-36); MEAN CORPUSCULAR VOLUME 88 FL (80-99); MEAN PLATELET VOLUME 10.7 FL (7.4-10.4); MONOCYTES # (AUTO) 1.9 X 10^3 (0.0-1.0); MONOCYTES % (AUTO) 12 % (0-12); NEUTROPHILS # (AUTO) 12.5 X 10^3 (1.8-7.8); NEUTROPHILS % (AUTO) 77 % (42-75); PLATELET COUNT 276 10^3/uL (130-400); RED CELL DISTRIBUTION WIDTH 17.1 % (10.0-14.5); WHITE BLOOD COUNT 16.2 10^3/uL (4.3-11.0)
[2019-10-04 18:33] LABS: ALBUMIN 2.3 GM/DL (3.2-4.5); BILIRUBIN,DIRECT 0.4 MG/DL (0.0-0.3); BILIRUBIN,INDIRECT 0.2 MG/DL; BILIRUBIN,TOTAL 0.6 MG/DL (0.1-1.0); CALCIUM 6.8 MG/DL (8.5-10.1); CREATININE SERUM 1.36 MG/DL (0.60-1.30); POTASSIUM 4.7 MMOL/L (3.6-5.0); TOTAL PROTEIN 4.6 GM/DL (6.4-8.2)
[2019-10-04] MEDS ORDERED: FAMOTIDINE 20MG/2ML IV (PEPCID) IV SCH (21:00)
[2019-10-05] VITALS (16 sets, daily range): BP systolic 86–157; BP diastolic 53–83
[2019-10-05] MEDS: VASOPRESSIN INJECTION 20 UNIT in NS (IVPB) 100 ML IV SCH (00:16)
[2019-10-05] MEDS: NOREPINEPHRINE 8 MG in NS (IVPB) 250 ML IV SCH ×4 (00:22→07:56)
[2019-10-05] MEDS: PHENYLEPHRINE DOUBLE STRENGTH 20MG/ 250 ML IV SCH ×4 (01:47→06:41)
--- NOTE | 2019-10-05 02:33 | NUR ---
E-ICU contacted, updated on pt condition, plan of care discussed
[2019-10-05 03:08] LABS: ABG BASE EXCESS -11.3 MMOL/L (-2.5-2.5); ABG OXYGEN SATURATION 92 % (94-100); ABG PCO2 36 MMHG (35-45); ABG PO2 68 MMHG (79-93); ABG TCO2 15.9 MMOL/L (21.0-31.0)
[2019-10-05 03:09] LABS: BASOPHILS % (AUTO) 0 % (0-10); EOSINOPHILS % (AUTO) 0 % (0-10); HEMATOCRIT 33 % (35-52); HEMOGLOBIN 10.5 G/DL (11.5-16.0); LYMPHOCYTES # (AUTO) 2.6 X 10^3 (1.0-4.0); LYMPHOCYTES % (AUTO) 19 % (12-44); MEAN CORPUSCULAR HEMOGLOBIN 27 PG (25-34); MEAN CORPUSCULAR HGB CONC 32 G/DL (32-36); MEAN CORPUSCULAR VOLUME 86 FL (80-99); MEAN PLATELET VOLUME 11.1 FL (7.4-10.4); MONOCYTES # (AUTO) 1.6 X 10^3 (0.0-1.0); MONOCYTES % (AUTO) 12 % (0-12); NEUTROPHILS # (AUTO) 9.4 X 10^3 (1.8-7.8); NEUTROPHILS % (AUTO) 69 % (42-75); PLATELET COUNT 218 10^3/uL (130-400); RED CELL DISTRIBUTION WIDTH 17.2 % (10.0-14.5); WHITE BLOOD COUNT 13.6 10^3/uL (4.3-11.0)
[2019-10-05] MEDS: MIDAZOLAM INJECTION FOR DRIPS 50 MG in NS (IVPB) 90 ML IV SCH (03:10)
[2019-10-05 03:15] LABS: ALLENS TEST ART LINE; INSPIRED O2 40%; PATIENT TEMP 36.6; VENTILATOR YES
[2019-10-05 03:17] LABS: ABG PH 7.24 (7.37-7.43)
[2019-10-05 03:51] LABS: CALCIUM 6.6 MG/DL (8.5-10.1); CREATININE SERUM 1.29 MG/DL (0.60-1.30); MAGNESIUM 2.2 MG/DL (1.6-2.4); PHOSPHORUS 2.9 MG/DL (2.3-4.7)
[2019-10-05 03:57] LABS: ALBUMIN 2.4 GM/DL (3.2-4.5); MAGNESIUM 2.2 MG/DL (1.6-2.4)
[2019-10-05] MEDS: DOPamine DRIP 400 MG/250 ML D5W (PRE-MIX) IV SCH (04:32)
--- NOTE | 2019-10-05 05:11 | Pulmonary Consultation ---
History of Present Illness History of Present Illness Date Seen by Provider: Oct 05, 2019 Time Seen by Provider: 05:04 Date of Admission History of Present Illness 69yo wiht hx of CAD presented to ED with CP and went into V fib/flutter. She is s/p cath and is on balloon pump. After cath she coded multiple times and was shocked secondary to V Tach. She is on ventilator and balloon pump. She is on multiple IV drips. She is not a candidate for theraputic hypothermia. is currently on Lidocain, amiodarone, insuline gtt, hep, Levophed phenylephrine, vasopressin, versed, and Fentanyl. Allergies and Home Medications Allergies Coded Allergies: Penicillins (Unverified Allergy, Mild, 09/04/09) codeine (Unverified Allergy, Mild, 09/04/09) morphine (Unverified Allergy, Mild, 09/04/09) Home Medications Acetaminophen 500 Mg Tablet, 1,000 MG PO Q6H PRN for PAIN, (Reported) TAKES 2 (500MG) TABLETS Albuterol Sulfate 18 Gm Hfa.aer.ad, 2 PUFF IH Q4H PRN for SHORTNESS OF BREATH, (Reported) Aspirin 81 Mg Tab.chew, 81 MG PO 0900, (Reported) Atorvastatin Calcium 20 Mg Tablet, 20 MG PO 0900, (Reported) Cetirizine HCl 10 Mg Tablet, 10 MG PO DAILY, (Reported) Cholecalciferol (Vitamin D3) 5,000 Unit Tablet, 5,000 UNIT PO DAILY, (Reported) Citalopram Hydrobromide 40 Mg Tablet, 40 MG PO DAILY, (Reported) Clopidogrel Bisulfate 75 Mg Tablet, 75 MG PO 0900, (Reported) Fluticasone/Umeclidin/Vilanter 1 Each Blst.w.dev, 1 EACH IH DAILY, (Reported) Gabapentin 800 Mg Tablet, 800 MG PO TID, (Reported) Levothyroxine Sodium 75 Mcg Tablet, 75 MCG PO 0800, (Reported) Loperamide HCl 2 Mg Tablet, 2 MG PO PRN PRN for DIARRHEA, (Reported) Lorazepam 1 Mg Tablet, 1 MG PO HS, (Reported) Nitroglycerin 0.4 Mg Tab.subl, 0.4 MG SL UD PRN for CHEST PAIN, (Reported) Ranitidine HCl 150 Mg Tablet, 150 MG PO HS PRN for HEARTBURN, (Reported) Vit A,C & E/Lutein/Minerals 1 Each Tablet, 1 EACH PO DAILY, (Reported) Zafirlukast 20 Mg Tablet, 20 MG PO BID, (Reported) Past Oeckzqr-Jorlqq-Xzaosq Hx Past Med/Social Hx: Reviewed Nursing Past Med/Soc Hx Patient Social History Alcohol Use: Occasionally Uses Recreational Drug Use: No Smoking Status: Current Everyday Smoker Type Used: Cigarettes Recent Foreign Travel: No Contact w/Someone Who Travel: No Recent Infectious Disease Expo: No Recent Hopitalizations: No Physical Abuse: No Sexual Abuse: No Mistreated: No Fear: No Immunizations Up To Date Tetanus Booster (TDap): Unknown Date of Pneumonia Vaccine: Aug 21, 2015 Date of Influenza Vaccine: Aug 21, 2015 Seasonal Allergies Seasonal Allergies: Yes Past Medical History Surgeries: Yes Abdominal, Appendectomy, Bowel Surgery, Cardiac, Coronary Stent, Gallbladder, Hysterectomy Respiratory: Yes Sleep Apnea, COPD Cardiac: Yes (CARDIAC CATHS-STENTS X 4) Coronary Artery Disease, Heart Attack, Hypertension Neurological: Yes (TRIGEMINAL NEURALGIA, LEFT SIDED FACIAL NUMBNESS) Reproductive Disorders: Yes (X2 MISCARRIAGES) Female Reproductive Disorders: 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, 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 0.0oz. 105.046747vl; 36.15 BMI Method:Stated Exam Exam Vital Signs Date Time Temp Pulse Resp B/P (MAP) Pulse Ox O2 Delivery O2 Flow Rate FiO2 10/05/19 05:00 90 27 101/63 (76) 90 Mechanical Ventilator 40.00 10/05/19 04:00 Mechanical Ventilator 40.00 10/05/19 04:00 90 24 106/56 (73) 91 Mechanical Ventilator 40.00 10/05/19 03:10 Mechanical Ventilator 10/05/19 03:00 87 24 90/60 (70) 92 Mechanical Ventilator 40.00 10/05/19 02:45 36.6 10/05/19 02:00 88 24 157/66 (96) 92 Mechanical Ventilator 40.00 10/05/19 01:35 37.2 10/05/19 01:27 86 25 93 40 10/05/19 01:00 85 10/05/19 01:00 86 25 94/55 (68) 93 Mechanical Ventilator 40.00 10/05/19 00:00 89 24 86/58 (67) 93 Mechanical Ventilator 40.00 10/05/19 00:00 Mechanical Ventilator 40.00 10/04/19 23:00 88 27 89/65 (73) 94 Mechanical Ventilator 40.00 10/04/19 22:45 Mechanical Ventilator 40.00 10/04/19 22:18 Mechanical Ventilator 45.00 10/04/19 22:08 Mechanical Ventilator 50.00 10/04/19 22:00 96 24 104/67 (79) 93 Mechanical Ventilator 55.00 10/04/19 21:54 Mechanical Ventilator 55.00 10/04/19 21:39 Mechanical Ventilator 60.00 10/04/19 21:20 92 26 93 40 10/04/19 21:05 Mechanical Ventilator 50.00 10/04/19 21:00 90 24 95/60 (72) 95 Mechanical Ventilator 40.00 10/04/19 20:27 36.7 Mechanical Ventilator 40.00 10/04/19 20:00 87 23 85/55 (65) 95 Mechanical Ventilator 40.00 10/04/19 20:00 Mechanical Ventilator 40.00 10/04/19 19:00 86 10/04/19 19:00 86 25 86/47 (60) 96 Mechanical Ventilator 40.00 10/04/19 18:37 Mechanical Ventilator 40.00 10/04/19 18:34 86 24 98 40 10/04/19 18:00 88 24 132/46 (74) 98 Mechanical Ventilator 50.00 10/04/19 18:00 102/38 10/04/19 17:00 92 32 86/58 (67) 98 Mechanical Ventilator 50.00 10/04/19 16:00 103 28 84/61 (69) 98 Mechanical Ventilator 50.00 10/04/19 16:00 99 Mechanical Ventilator 50.00 10/04/19 15:22 36.4 10/04/19 15:00 108 30 90/57 (68) 97 Mechanical Ventilator 50.00 10/04/19 14:46 103 29 99 50 10/04/19 14:00 105 26 107/77 (87) 98 Mechanical Ventilator 50.00 10/04/19 13:00 105 10/04/19 13:00 105 25 164/100 (121) 96 Mechanical Ventilator 50.00 10/04/19 12:00 101 24 164/115 (131) 93 Mechanical Ventilator 100.00 10/04/19 12:00 93 Mechanical Ventilator 100.00 10/04/19 11:25 35.8 10/04/19 11:00 103 24 81/64 (70) 94 Mechanical Ventilator 100.00 10/04/19 10:00 109 23 122/49 (73) 94 Mechanical Ventilator 100.00 10/04/19 09:40 109 24 94 100 10/04/19 09:00 108 24 143/59 (87) 93 Mechanical Ventilator 100.00 10/04/19 08:05 35.7 10/04/19 08:00 92 Mechanical Ventilator 100.00 10/04/19 08:00 92 24 98/49 (65) 93 Mechanical Ventilator 100.00 10/04/19 07:09 90 24 94 90 10/04/19 07:00 85 23 80/39 (53) 96 Mechanical Ventilator 100.00 10/04/19 07:00 91 10/04/19 06:00 102 23 112/54 (73) 95 Mechanical Ventilator 100.00 I & O 10/05/19 07:00 Intake Total 8733.5 ml Output Total 1254 ml Balance 7479.5 ml Height & Weight Height: 5'5.00" Weight: 233lbs. 0.0oz. 105.414465kn; 36.15 BMI Method:Stated General Appearance: Other (ill appearing, sedated and intubated) HEENT: Other (OG in place, ETT in place) Neck: Other (central line in place with some oozing) Respiratory: Lungs Clear, Other (on vent) Cardiovascular: Regular Rate, Rhythm, Other (balloon pump at bedside) Capillary Refill: Greater Than 3 Seconds Neurologic/Psychiatric: Other (sedated, unable to obtain) Skin: Normal Color, Warm/Dry Results Lab Laboratory Tests 10/03/19 22:16 10/04/19 03:47 10/04/19 13:10 10/04/19 18:07 10/05/19 02:56 Assessment/Plan Assessment/Plan Acute respiratory failure - Add precedex and propofol -Pt is very agitated with suctioning. Will increase sedation for patient safety. -Decrease PEEP to 8 and continue to titrate Fi02. s/p Cardiac Arrest Cardiogenic shock -Balloon pump -Cardiology following Nonanion gapped metabolic acidosis -Currently on Bicarb gtt with D5W and 1 amp of bicarb -Give 2 amps of bicarb IV Hyponatremia -Change IVF to D51/2 with 2amps of bicarb STEMI CAD S/p stenting by Dr Minor PVD Current tobacco dependance Overall prognosis is poor. I talked with family who were already at bedside this morning waiting for me and explained all options to them including comfort care only. They are going to talk about everything with other family members. I anticipate based on our conversation they will decide on comfort care today or tomorrow. ANDREIA CUNNINGHAM DO Oct 05, 2019 05:11
[2019-10-05] MEDS ORDERED: SODIUM BICARB 8.4% 50 MEQ/50 ML VIAL IV ONE (05:15)
[2019-10-05] MEDS ORDERED: SODIUM BICARBONATE 8.4% VIAL 100 MEQ in 1/2 NS IV SOLUTION 1,000 ML IV SCH (05:15)
[2019-10-05] MEDS ORDERED: proPOfol 500 MG/50 ML (DIPRIVAN) VIAL IV ONE (05:15)
[2019-10-05] MEDS ORDERED: PROPOFOL DRIP (ICU) 100 ML IV ONE (05:26)
[2019-10-05] MEDS ORDERED: SODIUM BICARB 8.4% 50 MEQ/50 ML VIAL ONE (05:27)
[2019-10-05] MEDS ORDERED: NS (IVPB) 50 ML ONE (05:28)
[2019-10-05] MEDS: HEParin 1000 UNIT/ML (10ML VIAL) FOR BOLUS IV SCH (05:35)
[2019-10-05] MEDS: DEXMEDETOMIDINE INJECTION 200 MCG in NS (IVPB) 50 ML IV SCH ×2 (05:48→06:49)
[2019-10-05] MEDS ORDERED: PROPOFOL DRIP (ICU) 100 ML IV SCH (06:00)
[2019-10-05] MEDS ORDERED: POTASSIUM CL 10MEQ/50ML IVPB 50 ML IV SCH (06:00)
[2019-10-05] MEDS ORDERED: KCL 20 MEQ TAB (K-DUR) PO SCH (06:00)
[2019-10-05] MEDS ORDERED: MAGNESIUM 1 GM/100 ML IVPB 100 ML IV SCH (06:00)
[2019-10-05] MEDS ORDERED: DEXMEDETOMIDINE 1,000 MCG/NS 250 ML IV SCH ×2 (07:00)
[2019-10-05] MEDS: NS IV 1000 ML 1,000 ML IV SCH (07:47)
[2019-10-05] MEDS ORDERED: inSUlin ASPART (NovoLOG) 1 UNIT/0.01 ML (CHARGE PER UNIT) SC SCH (08:00)
--- NOTE | 2019-10-05 08:27 | NUR ---
DR KRAUSE NOTIFIED BY THIS RN OF PT FAMILY REQUESTS TO MAKE PT COMFORT CARE AND WITHDRAW LIFE SUPPORT. DR KRAUSE ORDERED TO PUT BALLOON PUMP IN 1:2 RATIO. THIS RN IN ROOM WITH PT. WILL CONTINUE TO MONITOR.
--- NOTE | 2019-10-05 08:41 | NUR ---
PALLIATIVE CARE RN in to see patient. Was updated by RN and then spoke to family to introduce self and explain my role. They, at this time, have no questions at this time. Ye is to palliatively extubate the patient once Iván sees the patient.
[2019-10-05] MEDS ORDERED: HYDROmorphone 2 MG/ML VIAL (DILAUDID) IVP PRN (10:45)
[2019-10-05] MEDS ORDERED: LORazepam INJ 2 MG/ML (ATIVAN) VIAL IVP PRN (10:45)
[2019-10-05] MEDS ORDERED: HYDROmorphone 2 MG/ML VIAL (DILAUDID) IV NR (10:45)
--- NOTE | 2019-10-05 11:12 | Cardiology Progress Note ---
Cardiology SOAP Progress Note Subjective: Intubated/ventilated Objective: I&O/Vital Signs 10/05/19 10/05/19 10/05/19 10/05/19 05:00 05:19 05:55 06:00 Pulse 90 87 Resp 27 26 B/P (MAP) 101/63 (76) 134/70 (91) Pulse Ox 90 91 O2 Delivery Mechanical Ventilator Mechanical Ventilator Mechanical Ventilator Me chanical Ventilator O2 Flow Rate 40.00 45.00 45.00 10/05/19 10/05/19 10/05/19 10/05/19 07:00 07:00 07:23 08:00 Pulse 81 82 81 80 Resp 28 24 28 B/P (MAP) 129/69 (89) 107/60 (76) Pulse Ox 92 93 91 O2 Delivery Mechanical Ventilator Mechanical Ventilator O2 Flow Rate 45.00 45.00 FiO2 45 10/05/19 10/05/19 10/05/19 10/05/19 08:00 09:00 09:23 10:00 Temp 37.3 Pulse 79 76 Resp 32 36 B/P (MAP) 117/67 (84) 110/83 (92) Pulse Ox 92 92 92 O2 Delivery Mechanical Ventilator Mechanical Ventilator Mechanical Ventilator O2 Flow Rate 45.00 45.00 45.00 10/05/19 10/05/19 10/05/19 10/05/19 10:36 11:00 12:00 12:00 Pulse 76 76 85 Resp 39 38 41 B/P (MAP) 120/62 (81) 131/71 (91) Pulse Ox 91 91 92 O2 Delivery Mechanical Ventilator Mechanical Ventilator Mechanical Ventilator O2 Flow Rate 45.00 45.00 45.00 FiO2 45 10/05/19 12:00 Temp 37.2 10/05/19 00:00 Intake Total 5839.5 ml Output Total 895 ml Balance 4944.5 ml Weight (Pounds): 233 Weight (Ounces): 0.0 Weight (Calculated Kilograms): 105.212330 Constitutional: other (on mechanical ventilation) Respiratory: chest is bilaterally symmetric, other (decreased air entry bilaterally. On mechanical ventilation) Cardiovascular: regular rate-rhythm, tachycardia, S1 and S2 Gastrointestional: soft, audible bowel sounds; No spleenomegaly Extremities: No clubbing, No cyanosis; no lower extremity edema bilateral; No significant edema Neurologic/Psychiatric: other (on mechanical ventilation) Skin: cool; No rash, No ulcerations Results/Procedures: Labs Laboratory Tests 10/04/19 17:08: Glucometer 222H 10/04/19 18:07: Glucometer 180H, White Blood Count 16.2H, Red Blood Count 4.03L, Hemoglobin 11.1L, Hematocrit 35, Mean Corpuscular Volume 88, Mean Corpuscular Hemoglobin 28, Mean Corpuscular Hemoglobin Concent 31L, Red Cell Distribution Width 17.1H, Platelet Count 276, Mean Platelet Volume 10.7H, Neutrophils (%) (Auto) 77H, Lymphocytes (%) (Auto) 11L, Monocytes (%) (Auto) 12, Eosinophils (%) (Auto) 0, Basophils (%) (Auto) 0, Neutrophils # (Auto) 12.5H, Lymphocytes # (Auto) 1.7, Monocytes # (Auto) 1.9H, Eosinophils # (Auto) 0.0, Basophils # (Auto) 0.0, Sodium Level 136, Potassium Level 4.7, Chloride Level 114H, Carbon Dioxide Level 12L, Anion Gap 10, Blood Urea Nitrogen 11, Creatinine 1.36H, Estimat Glomerular Filtration Rate 39, BUN/Creatinine Ratio 8, Glucose Level 175H, Calcium Level 6.8L, Total Bilirubin 0.6, Direct Bilirubin 0.4H, Indirect Bilirubin 0.2, Aspartate Amino Transf (AST/SGOT) 329H, Alanine Aminotransferase (ALT/SGPT) 266H , Alkaline Phosphatase 129, Total Protein 4.6L, Albumin 2.3L 10/04/19 18:51: Glucometer 168H 10/04/19 20:12: Glucometer 138H 10/04/19 21:04: Activated Partial Thromboplast Time 127*H, Troponin I 91.689*H, B-Type Natriuretic Peptide 637.6H 10/04/19 21:11: Glucometer 120H 10/04/19 21:59: Glucometer 102 10/04/19 22:59: Glucometer 91 10/04/19 23:57: Glucometer 74 10/05/19 00:58: Glucometer 62L 10/05/19 02:14: Glucometer 56*L 10/05/19 02:56: White Blood Count 13.6H, Red Blood Count 3.88L, Hemoglobin 10.5L, Hematocrit 33L , Mean Corpuscular Volume 86, Mean Corpuscular Hemoglobin 27, Mean Corpuscular Hemoglobin Concent 32, Red Cell Distribution Width 17.2H, Platelet Count 218, Mean Platelet Volume 11.1H, Neutrophils (%) (Auto) 69, Lymphocytes (%) (Auto) 19, Monocytes (%) (Auto) 12, Eosinophils (%) (Auto) 0, Basophils (%) (Auto) 0, Neutrophils # (Auto) 9.4H, Lymphocytes # (Auto) 2.6, Monocytes # (Auto) 1.6H, Eosinophils # (Auto) 0.0, Basophils # (Auto) 0.0, Blood Gas Puncture Site R FEMORAL ART, Blood Gas Patient Temperature 36.6, Arterial Blood pH 7.24*L, Arterial Blood Partial Pressure CO2 36, Arterial Blood Partial Pressure O2 68L, Arterial Blood HCO3 15*L, Arterial Blood Total CO2 15.9L, Arterial Blood Oxygen Saturation 92L, Arterial Blood Base Excess -11.3L, Raffy Test ART LINE, Blood Gas Ventilator Setting YES, Blood Gas Inspired Oxygen 40%, Sodium Level 134L, Potassium Level 5.0, Chloride Level 113H, Carbon Dioxide Level 13L, Anion Gap 8, Blood Urea Nitrogen 12, Creatinine 1.29, Estimat Glomerular Filtration Rate 41, BUN/Creatinine Ratio 9, Glucose Level 72, Lactic Acid Level 2.03*H, Calcium Level 6.6L, Phosphorus Level 2.9, Magnesium Level 2.2, Troponin I 90.091*H, Albumin 2.4L, Triglycerides Level 79 10/05/19 03:05: Glucometer 62L 10/05/19 03:51: Activated Partial Thromboplast Time 57H 10/05/19 03:54: Glucometer 95 10/05/19 04:59: Glucometer 102 10/05/19 05:03: Lactic Acid Level 2.69*H 10/05/19 06:08: Glucometer 80 10/05/19 08:14: Glucometer 87 Microbiology 10/04/19 Gram Stain - Final, Resulted 10/04/19 Sputum Culture - Preliminary, Resulted Usual upper respiratory hafsa A/P: Assessment/Dx: Acute inferior posterior STEMI, Cardiogenic shock requiring pressors, Numerous ventricular fibrillation arrests requiring defibrillation, Uncontrolled diabetes, Acute respiratory failure with metabolic/respiratory Acidosis, Acute kidney injury, Active upper airway bleeding, currently resolved Active smoking, COPD, Hypertension, Hyperlipidemia Plan: Acute inferior posterior STEMI, status post primary PCI to the RCA and left circumflex artery with drug-eluting stents. Both acute occlusions within previously placed stents. Procedure was done during active CPR and numerous episodes of ventricular fibrillation requiring defibrillation. Aspirin, Brilinta, IV heparin. Echocardiogram 10/04/2019 showed an EF of 40 percent with inferior and lateral hypokinesis. Cardiogenic shock requiring multiple pressors including levophed, Star- Synephrine, vasopressin. Augmented blood pressure on intra-aortic balloon pump of 549218 mmHg. On augmented blood pressure 100 mmHg. LVEDP during left heart catheterization was 32 mmHg. Acute kidney injury, worsening kidney function. However making reasonable amount of urine at this point in time. Numerous ventricular fibrillation arrests requiring defibrillation, no further V. fib episodes in the last 24 hours. Was started on lidocaine infusion, amiodarone infusion, magnesium and potassium. Last ventricular fibrillation a rrest and defibrillation at 4.27 a.m. this morning. Uncontrolled diabetes, insulin infusion. Deferred to primary team and eICU. Acute respiratory failure with metabolic/respiratory Acidosis, FiO2 54 percent, PEEP of 8. Active upper airway bleeding, currently resolved. Due to active bleeding from the nose and mouth we had to stop IV Integrilin. Controlled for now. Active smoking, COPD, Hypertension, Hyperlipidemia Critically ill patient. Over 30 minutes were spent taking care of the patient and talking to the family. We had a long conference with the entire family and discussed all the aspects of her care. I advised that we should continue current course of action for the next 24 hours or so. However the family had made a joint decision to withdraw care based on patient's wishes. I will follow the patient's wishes as told by the entire family. Thank you for your consultation. Please call me if you have any questions. Adalid Minor MD, FACP, FACC, FSCAI, FHRS, CCDS Interventional Cardiology Cardiac Electrophysiology Vascular Medicine and Endovascular Interventions Focused Exam Lactate Level 10/04/19 15:16: Lactic Acid Level 5.04*H 10/05/19 02:56: Lactic Acid Level 2.03*H 10/05/19 05:03: Lactic Acid Level 2.69*H Clinical Quality Measures AMI/AHF: ASA po Prior to arrival: Ronny Galeas MD Oct 05, 2019 11:12
--- NOTE | 2019-10-05 11:55 | NUR ---
BALLOON PUMP PULLED AND PRESSURE APPLIED TO SITE AT THIS TIME BY ERADICATOR. THIS RN IN ROOM WITH PT.
--- NOTE | 2019-10-05 12:38 | NUR ---
PT FAMILY AT BEDSIDE AFTER BALLOON PUMP REMOVAL. ET TUBED PULLED AT THIS TIME BY RT AND ALL IV GTTS PREVIOUSLY TURNED OFF.
--- NOTE | 2019-10-05 12:40 | NUR ---
PT RESPIRATIONS CEASED AND NO PERCEPTIBLE HEART RATE AT THIS TIME. PT FAMILY AT BEDSIDE WITH PT.
--- NOTE | 2019-10-05 13:15 | NUR ---
67.5ML VERSED WASTED AT THIS TIME. WASTE WITNESSED BY MARIMAR BEARD.
[2019-10-05] MEDS ORDERED: POTASSIUM PHOSPHATE INJ 30 MM in NS (IVPB) 250 ML IV ONE (14:33)
== END 2019-10-05 12:40 | disposition expired ==
LOC: EDUNIT# 22:04 → ER 22:05 → CATH 22:32 → ICU 10-04 01:52 → CATH 10-05 12:40
PROVIDERS: ATTEND Internal Medicine Interventional Cardiology
DX: I21.3 ST elevation (STEMI) myocardial infarction of unspecified site (principal); I25.2 Old myocardial infarction; I46.9 Cardiac arrest, cause unspecified; I10 Essential (primary) hypertension; I49.01 Ventricular fibrillation; J44.9 Chronic obstructive pulmonary disease, unspecified; G47.30 Sleep apnea, unspecified; K21.9 Gastro-esophageal reflux disease without esophagitis; K50.90 Crohn's disease, unspecified, without complications; E11.8 Type 2 diabetes mellitus with unspecified complications; E78.5 Hyperlipidemia, unspecified; J96.00 Acute respiratory failure, unspecified whether with hypoxia or hypercapnia; N17.9 Acute kidney failure, unspecified; F32.9 Major depressive disorder, single episode, unspecified; F17.210 Nicotine dependence, cigarettes, uncomplicated; Z79.899 Other long term (current) drug therapy; Z88.5 Allergy status to narcotic agent; Z88.0 Allergy status to penicillin; Z79.82 Long term (current) use of aspirin; Z79.02 Long term (current) use of antithrombotics/antiplatelets; Z90.89 Acquired absence of other organs; Z95.1 Presence of aortocoronary bypass graft; Z90.710 Acquired absence of both cervix and uterus; Z79.4 Long term (current) use of insulin
CPT/HCPCS: 31500; 33967; 36221; 36415; 36600; 71045; 80048; 80053; 82040; 82330; 82805; 82962; 83605; 83735; 83874; 84100; 84132; 84478; 84484; 85025; 85347; 85610; 85730; 93005; 93041; 93306; 93458; 94003; 94799; 96374; 96375